=== PATIENT | male | born 1950 | race Caucasian/White ===

== ENCOUNTER 2020-06-06 07:20 | Outpatient (CLI) | payer MEDICARE, OTHER, SELFPAY ==
[2020-06-06 08:06] LABS: Basophils Percent Auto 0.7 % (0.2-1.2); Eosinophils Absolute Auto 0.1 K/mm3 (0-0.3); Eosinophils Percent Auto 2.1 % (0-4.4); Hematocrit 50.5 % (42.0-52.0); Hemoglobin 16.9 g/dL (14.0-18.0); Immature Granulocyte Absolute 0.03 K/mm3 (0.00-0.031); Immature Granulocyte Percent A 0.5 % (0-0.5); Lymphocytes Absolute Auto 2.11 K/mm3 (0.9-3.2); Lymphocytes Percent Auto 36.8 % (18.3-44.2); Mean Corpuscular HGB Conc 33.5 g/dl (32-36); Mean Corpuscular Hemoglobin 34.1 pg (26-34); Mean Corpuscular Volume 101.8 fl (80-100); Mean Platelet Volume 9.3 fl (7.4-10.4); Monocytes Absolute Auto 0.6 K/mm3 (0.1-0.6); Monocytes Percent Auto 10.5 % (2.6-8.5); Neutrophils Absolute Auto 2.8 K/mm3 (1.3-6.7); Neutrophils Percent Auto 49.4 % (45.5-73.1); Platelet Count Result 220 k/mm3 (150-375); Red Blood Count 4.96 M/mm3 (4.6-6.20); Red Cell Distribution Width 12.8 % (11.5-14.5); White Blood Count 5.7 K/mm3 (4.5-10.0)
[2020-06-06 08:17] LABS: Alanine Aminotransferase 27 U/L (4-50); Albumin Level 3.9 g/dL (3.5-5.1); Alkaline Phosphatase 43 U/L (38-126); Anion Gap 4 mmol/L (8-16); Aspartate Amino Transferase 33 U/L (17-59); Bilirubin,Total 0.9 mg/dL (0.2-1.3); Blood Urea Nitrogen 21 mg/dL (9-20); Calcium 9.4 mg/dL (8.4-10.2); Carbon Dioxide 33 mmol/L (22-30); Chloride 102 mmol/L (98-107); Cholesterol 141 mg/dL (0-200); Estimated Glomerular Filt Rate > 60; Glucose 114 mg/dL (75-110); HDL Direct 47 mg/dL; Potassium 3.8 mmol/L (3.4-5.0); Sodium 139 mmol/L (137-145); Triglycerides 68 mg/dL (<150)
[2020-06-06 08:28] LABS: LDL Cholesterol Direct 78 mg/dL
[2020-06-06 08:48] LABS: Prostate Specific Antigen 0.8 ng/mL (< OR = 4.0)
[2020-06-06 08:56] LABS: Free T4 Free Thyroxine 1.05 ng/mL (0.78-2.19)
== END 2020-06-06 07:21 | disposition home or self-care (01) ==
PROVIDERS: PCP Family Medicine; Referring Provider Internal Medicine Cardiovascular Disease; Visit Provider Family Medicine
DX: E78.5 Hyperlipidemia, unspecified (principal); I10 Essential (primary) hypertension; I25.10 Atherosclerotic heart disease of native coronary artery without angina pectoris; I25.9 Chronic ischemic heart disease, unspecified; I42.0 Dilated cardiomyopathy; Z12.5 Encounter for screening for malignant neoplasm of prostate
CPT/HCPCS: 36415; 80053; 80061; 84153; 84439; 84443; 85025; G0103

== ENCOUNTER 2021-05-25 07:35 | Outpatient (CLI) | payer MEDICARE, OTHER, SELFPAY ==
--- NOTE | 2021-05-25 07:53 | ECHO_ITS ---
Patient Info Name: Jabari Moralez Age: 70 years : 1950 Gender: Male Ht: 74 in Wt: 235 lbs BSA: 2.38 m2 HR: 52 bpm BP: 145 / 86 mmHg Technical Quality: Good Exam Date: 05/25/2021 8:15 AM Exam Location: [facility] Patient Status: Outpatient Admit Date: 05/25/2021 Staff Ordering Physician: Marko Humphrey DO Sdc Teacher: Cecille Cardozo RDCS Attending Provider: Marko Humphrey DO Referring Physician: Kam SEARS; Exam Type: CA echo doppler color flow Study Info Indications I25.9 - Chronic ischemic heart disease, unspecified Complete two-dimensional, color flow and Doppler transthoracic echocardiogram is performed. Summary 1. Complete two-dimensional, color flow and Doppler transthoracic echocardiogram is performed. 2. Left ventricular chamber dimension is mildly enlarged. 3. Entire posterior wall is thin and akinetic. Lateral wall is hypokinetic. 4. Left ventricular systolic function is moderately reduced, estimated at 40-45%. 5. The left ventricular diastolic function is grade I diastolic dysfunction. 6. E/e' 20 is elevated. 7. Left atrial chamber dimension is mildly enlarged. 8. There is trace mitral valve regurgitation. 9. Mild pulmonary hypertension, estimated pulmonary arterial systolic pressure is 40 mmHg. 10. The aortic root size at the sinus of Valsalva is mildly dilated at 4.4 cm.. Left Ventricle E/e' 20 is elevated. Entire posterior wall is thin and akinetic. Lateral wall is hypokinetic. Left ventricular chamber dimension is mildly enlarged. Left ventricular systolic function is moderately reduced, estimated at 40-45%. The left ventricular diastolic function is grade I diastolic dysfunction. Right Ventricle Right ventricular systolic function is normal and with normal TAPSE 1.9 cm. Right ventricular chamber dimension is normal. Left Atria Left atrial chamber dimension is mildly enlarged. Right Atria Right atrial chamber dimension is normal. Aortic Valve The aortic valve is trileaflet. There is no aortic valve stenosis. There is no aortic valve regurgitation. Pulmonic Valve There is no pulmonic regurgitation. Mitral Valve There is no mitral valve stenosis. There is trace mitral valve regurgitation. Tricuspid Valve There is no tricuspid valve regurgitation. Mild pulmonary hypertension, estimated pulmonary arterial systolic pressure is 40 mmHg. Pericardium/Pleural There is no pericardial effusion. Inferior Vena Cava Normal inferior vena cava with >50% collapse upon inspiration consistent with normal right atrial pressure, 5 mmHg. Aorta The aortic root size at the sinus of Valsalva is mildly dilated at 4.4 cm.. Left Ventricular Outflow Tract Name Value Normal LVOT 2D LVOT Diameter 2.5 cm LVOT Doppler LVOT Peak Gradient 2 mmHg LVOT Mean Gradient 1 mmHg LVOT VTI 19 cm LVOT VTI/AV VTI Ratio 0.7 LVOT Stroke Volume 94 ml LVOT CO 4.1 l/min LVOT CI
== END 2021-05-25 07:36 | disposition home or self-care (01) ==
PROVIDERS: PCP Family Medicine; Visit Provider Internal Medicine Cardiovascular Disease
DX: I25.9 Chronic ischemic heart disease, unspecified (principal); I27.20 Pulmonary hypertension, unspecified
CPT/HCPCS: 93306

== ENCOUNTER 2021-05-30 14:45 | Outpatient (CLI) | payer MEDICARE, OTHER, SELFPAY ==
[2021-05-30 15:25] LABS: Basophils Percent Auto 0.4 % (0.2-1.2); Eosinophils Absolute Auto 0.1 K/mm3 (0-0.3); Eosinophils Percent Auto 1.4 % (0-4.4); Hematocrit 54.4 % (42.0-52.0); Hemoglobin 18.3 g/dL (14.0-18.0); Immature Granulocyte Absolute 0.03 K/mm3 (0.00-0.031); Immature Granulocyte Percent A 0.4 % (0-0.5); Lymphocytes Absolute Auto 2.64 K/mm3 (0.9-3.2); Lymphocytes Percent Auto 33.4 % (18.3-44.2); Mean Corpuscular HGB Conc 33.6 g/dl (32-36); Mean Corpuscular Hemoglobin 34.5 pg (26-34); Mean Corpuscular Volume 102.6 fl (80-100); Mean Platelet Volume 9.2 fl (7.4-10.4); Monocytes Percent Auto 13.2 % (2.6-8.5); Neutrophils Absolute Auto 4.1 K/mm3 (1.3-6.7); Neutrophils Percent Auto 51.2 % (45.5-73.1); Platelet Count Result 214 k/mm3 (150-375); Red Cell Distribution Width 13.1 % (11.5-14.5); White Blood Count 7.9 K/mm3 (4.5-10.0)
[2021-05-30 15:38] LABS: Alanine Aminotransferase 32 U/L (4-50); Albumin Level 4.4 g/dL (3.5-5.1); Alkaline Phosphatase 46 U/L (38-126); Anion Gap 8 mmol/L (8-16); Aspartate Amino Transferase 34 U/L (17-59); Bilirubin,Total 1.2 mg/dL (0.2-1.3); Blood Urea Nitrogen 25 mg/dL (9-20); Calcium 10.2 mg/dL (8.4-10.2); Carbon Dioxide 32 mmol/L (22-30); Chloride 100 mmol/L (98-107); Cholesterol 154 mg/dL (0-200); Estimated Glomerular Filt Rate > 60; Glucose 67 mg/dL (65-110); HDL Direct 53 mg/dL; Potassium 3.9 mmol/L (3.4-5.0); Sodium 140 mmol/L (137-145); Triglycerides 80 mg/dL (<150)
[2021-05-30 15:49] LABS: LDL Cholesterol Direct 71 mg/dL
[2021-05-30 16:08] LABS: Prostate Specific Antigen 1.4 ng/mL (< OR = 4.0)
[2021-05-30 17:02] LABS: Free T4 Free Thyroxine 1.15 ng/mL (0.78-2.19)
== END 2021-05-30 14:46 | disposition home or self-care (01) ==
LOC: ANHLAB 14:49
PROVIDERS: PCP Family Medicine; Visit Provider Family Medicine
DX: E78.5 Hyperlipidemia, unspecified (principal); I10 Essential (primary) hypertension; Z79.899 Other long term (current) drug therapy; I25.10 Atherosclerotic heart disease of native coronary artery without angina pectoris; Z12.5 Encounter for screening for malignant neoplasm of prostate
CPT/HCPCS: 36415; 80053; 80061; 84153; 84439; 84443; 85025; G0103

== ENCOUNTER 2021-12-08 08:30 | Outpatient (CLI) | payer MEDICARE, OTHER, SELFPAY ==
[2021-12-08 09:03] LABS: Basophils Percent Auto 0.3 % (0.2-1.2); Eosinophils Absolute Auto 0.1 K/mm3 (0-0.3); Eosinophils Percent Auto 0.9 % (0-4.4); Hematocrit 50.2 % (42.0-52.0); Immature Granulocyte Absolute 0.01 K/mm3 (0.00-0.031); Immature Granulocyte Percent A 0.1 % (0-0.5); Lymphocytes Absolute Auto 1.72 K/mm3 (0.9-3.2); Lymphocytes Percent Auto 25.1 % (18.3-44.2); Mean Corpuscular HGB Conc 33.9 g/dl (32-36); Mean Corpuscular Hemoglobin 34.3 pg (26-34); Mean Corpuscular Volume 101.4 fl (80-100); Mean Platelet Volume 9.1 fl (7.4-10.4); Monocytes Absolute Auto 0.6 K/mm3 (0.1-0.6); Monocytes Percent Auto 9.4 % (2.6-8.5); Neutrophils Absolute Auto 4.4 K/mm3 (1.3-6.7); Neutrophils Percent Auto 64.2 % (45.5-73.1); Platelet Count Result 196 k/mm3 (150-375); Red Blood Count 4.95 M/mm3 (4.6-6.20); Red Cell Distribution Width 12.5 % (11.5-14.5); White Blood Count 6.8 K/mm3 (4.5-10.0)
[2021-12-08 09:11] LABS: Anion Gap 4 mmol/L (8-16); Blood Urea Nitrogen 20 mg/dL (9-20); Calcium 8.9 mg/dL (8.4-10.2); Carbon Dioxide 34 mmol/L (22-30); Chloride 99 mmol/L (98-107); Estimated Glomerular Filt Rate > 60; Glucose 134 mg/dL (65-110); Potassium 4.1 mmol/L (3.4-5.0); Sodium 137 mmol/L (137-145)
== END 2021-12-08 08:31 | disposition home or self-care (01) ==
LOC: ANHLAB 08:32
PROVIDERS: PCP Family Medicine; Visit Provider Family Medicine
DX: D75.1 Secondary polycythemia (principal); I25.10 Atherosclerotic heart disease of native coronary artery without angina pectoris; E78.5 Hyperlipidemia, unspecified; I10 Essential (primary) hypertension
CPT/HCPCS: 36415; 80048; 85025

== ENCOUNTER 2022-01-04 08:41 | Outpatient (CLI) | payer MEDICARE, OTHER, SELFPAY ==
[2022-01-04 09:34] LABS: Hemoglobin A1C 5.9 % (<5.7)
== END 2022-01-04 08:42 | disposition home or self-care (01) ==
LOC: ANHLAB 08:43
PROVIDERS: PCP Family Medicine; Visit Provider Family Medicine
DX: E11.9 Type 2 diabetes mellitus without complications (principal)
CPT/HCPCS: 36415; 83036

== ENCOUNTER 2022-06-10 07:11 | Outpatient (CLI) | payer MEDICARE, OTHER, SELFPAY ==
[2022-06-10 08:08] LABS: Cholesterol 143 mg/dL (0-200); HDL Direct 43 mg/dL; Triglycerides 120 mg/dL (<150)
[2022-06-10 08:21] LABS: LDL Cholesterol Direct 71 mg/dL
== END 2022-06-10 07:12 | disposition home or self-care (01) ==
PROVIDERS: PCP Family Medicine; Visit Provider Internal Medicine Cardiovascular Disease
DX: E78.5 Hyperlipidemia, unspecified (principal)
CPT/HCPCS: 36415; 80061

== ENCOUNTER 2023-02-05 07:23 | Outpatient (CLI) | payer MEDICARE, OTHER, SELFPAY ==
[2023-02-05 07:52] LABS: Basophils Percent Auto 0.3 % (0.2-1.2); Eosinophils Absolute Auto 0.1 K/mm3 (0-0.3); Eosinophils Percent Auto 1.5 % (0-4.4); Hematocrit 52.1 % (42.0-52.0); Hemoglobin 17.5 g/dL (14.0-18.0); Immature Granulocyte Absolute 0.01 K/mm3 (0.00-0.031); Immature Granulocyte Percent A 0.2 % (0-0.5); Lymphocytes Absolute Auto 1.78 K/mm3 (0.9-3.2); Lymphocytes Percent Auto 28.7 % (18.3-44.2); Mean Corpuscular HGB Conc 33.6 g/dl (32-36); Mean Corpuscular Hemoglobin 34.4 pg (26-34); Mean Corpuscular Volume 102.4 fl (80-100); Mean Platelet Volume 8.9 fl (7.4-10.4); Monocytes Absolute Auto 0.6 K/mm3 (0.1-0.6); Neutrophils Absolute Auto 3.7 K/mm3 (1.3-6.7); Neutrophils Percent Auto 59.3 % (45.5-73.1); Platelet Count Result 223 k/mm3 (150-375); Red Blood Count 5.09 M/mm3 (4.6-6.20); Red Cell Distribution Width 13.2 % (11.5-14.5); White Blood Count 6.2 K/mm3 (4.5-10.0)
[2023-02-05 08:31] LABS: Alanine Aminotransferase 36 U/L (6-50); Albumin Level 4.2 g/dL (3.5-5.1); Alkaline Phosphatase 51 U/L (38-126); Anion Gap 3 mmol/L (8-16); Aspartate Amino Transferase 39 U/L (17-59); Bilirubin,Total 1.1 mg/dL (0.2-1.3); Blood Urea Nitrogen 16 mg/dL (9-20); Calcium 9.3 mg/dL (8.4-10.2); Carbon Dioxide 37 mmol/L (22-30); Chloride 99 mmol/L (98-107); Cholesterol 142 mg/dL (0-200); Estimated Glomerular Filt Rate > 60; Glucose 106 mg/dL (65-110); HDL Direct 49 mg/dL; Sodium 139 mmol/L (137-145); Triglycerides 89 mg/dL (<150)
[2023-02-05 08:42] LABS: LDL Cholesterol Direct 75 mg/dL
[2023-02-05 09:12] LABS: Prostate Specific Antigen 2.8 ng/mL (< OR = 4.0)
== END 2023-02-05 07:24 | disposition home or self-care (01) ==
PROVIDERS: PCP Family Medicine; Visit Provider Family Medicine
DX: D75.1 Secondary polycythemia (principal); I10 Essential (primary) hypertension; Z12.5 Encounter for screening for malignant neoplasm of prostate; R73.01 Impaired fasting glucose; E78.5 Hyperlipidemia, unspecified
CPT/HCPCS: 36415; 80053; 80061; 83036; 84153; 85025; G0103

== ENCOUNTER 2023-03-07 14:53 | Outpatient (CLI) | payer MEDICARE, OTHER, SELFPAY ==
--- NOTE | 2023-03-07 14:59 | ECHO_ITS ---
Patient Info Name: Jabari Moralez Age: 72 years : 1950 Gender: Male Ht: 75 in Wt: 225 lbs BSA: 2.34 m2 HR: 62 bpm BP: 139 / 79 mmHg Heart Rhythm: Bradycardia Technical Quality: Fair Exam Date: 03/07/2023 3:07 PM Exam Location: [facility] Patient Status: Outpatient Admit Date: 03/07/2023 Staff Ordering Physician: Marko Humphrey DO Airline Counter Agent: Linda Chahal RDCS Attending Provider: Marko Humphrey DO Referring Physician: Kam SEARS; Exam Type: CA echo doppler color flow Study Info Indications I25.9 - Chronic ischemic heart disease, unspecified Complete two-dimensional, color flow and Doppler transthoracic echocardiogram is performed. Summary 1. Complete two-dimensional, color flow and Doppler transthoracic echocardiogram is performed. 2. Left ventricular chamber dimension is mildly enlarged. 3. There is mild asymmetric septal increased left ventricular wall thickness. 4. Basal to apical posterior wall is akinetic. 5. Left ventricular systolic function is moderately segmentally reduced, estimated at 40-45%. 6. The left ventricular diastolic function is grade I diastolic dysfunction. 7. E/e' 14 is mildly elevated. 8. Left atrial chamber dimension is mildly enlarged. 9. Normal inferior vena cava with <50% collapse upon inspiration consistent with elevated right atrial pressure, 10 mmHg. Left Ventricle E/e' 14 is mildly elevated. Basal to apical posterior wall is akinetic. Left ventricular systolic function is moderately segmentally reduced, estimated at 40-45%. Left ventricular chamber dimension is mildly enlarged. There is mild asymmetric septal increased left ventricular wall thickness. The left ventricular diastolic function is grade I diastolic dysfunction. Right Ventricle Right ventricular systolic function is normal and with normal TAPSE 2.8 cm. Right ventricular chamber dimension is normal. Left Atria Left atrial chamber dimension is mildly enlarged. Right Atria Right atrial chamber dimension is normal. Aortic Valve The aortic valve is trileaflet. There is no aortic valve stenosis. There is no aortic valve regurgitation. Pulmonic Valve There is no pulmonic regurgitation. Mitral Valve There is no mitral valve stenosis. There is no mitral valve regurgitation. Tricuspid Valve There is no tricuspid valve regurgitation. Pericardium/Pleural There is no pericardial effusion. Inferior Vena Cava Normal inferior vena cava with <50% collapse upon inspiration consistent with elevated right atrial pressure, 10 mmHg. Aorta The aortic root size at the sinus of Valsalva is normal. Tricuspid Valve Name Value Normal Estimated PAP/RSVP RA Pressure 10 mmHg <=5 Report Signatures
== END 2023-03-07 14:54 | disposition home or self-care (01) ==
LOC: ANHCARD 14:54
PROVIDERS: PCP Family Medicine; Visit Provider Internal Medicine Cardiovascular Disease
DX: I25.9 Chronic ischemic heart disease, unspecified (principal)
CPT/HCPCS: 93306

== ENCOUNTER 2023-03-17 00:32 | Day surgery (SDC) | payer MEDICARE, OTHER, SELFPAY ==
[2023-02-07 14:40] VITALS: BMI 29.5
[2023-03-10 10:33] VITALS: BMI 29.5
[2023-03-17 06:42] VITALS: BP 132/80; PULSE 50; RESP 18; TEMP 36; O2SAT 99; BMI 28.3
[2023-03-17] MEDS: LACTATED RINGERS 1,000 ML 150 ML IV CONT (06:59)
--- NOTE | 2023-03-17 07:43 | PM.HPGS ---
History of Present Illness History of Present Illness Consent: Risks, benefits, and alternatives have been discussed and questions answered. Patient agrees to proceed with procedure. Chief complaint: hx of colon polyps Narrative: Jabari Moralez is a 72 year old male Presents for colonoscopy. Patient has a prior history of adenomatous colon polyps these were removed at the time of colonoscopy in 2017. Patient reports his current bowel habits are normal. Her family history is noncontributory. Patient presents today for follow-up colonoscopy. Review of Systems Review of Systems: Review of systems noncontributory. 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 Chronic fatigue, unspecified Chronic ischemic heart disease Dilated cardiomyopathy Dyslipidemia Essential hypertension Unspecified hearing loss, bilateral Surgical History Surgical History History of arthroscopy of right knee History of hernia repair History of tooth extraction Family History Family History Mother Hypertension Father Family history of Alzheimer's disease, Onset Age: 83 Family history of heart disease in male family member before age 55 Social History Social History Smoking packs per day: 1 Smoking cigarettes per day: 20.0 Years smoked: 55 Smoking pack-years: 55.00 Smoking status: Current every day smoker Tobacco type: cigarettes Alcohol intake: current Substance use: never Substance use type: does not use Living arrangements: with family Spiritual care concerns: No Meds Home Medications and Allergies Home Medications Medication Instructions Recorded Confirmed Type lisinopril 20 mg tablet See Rx Instructions .Route 10/06/22 03/17/23 Rx .COMPLEX #180 tabs indapamide 1.25 mg tablet See Rx Instructions .Route 11/21/22 03/17/23 Rx .COMPLEX #90 tabs metoprolol tartrate 25 mg tablet See Rx Instructions .Route 12/24/22 03/17/23 Rx .COMPLEX #60 tabs lovastatin 10 mg tablet See Rx Instructions .Route 01/14/23 03/17/23 Rx .COMPLEX #90 tabs amiodarone 200 mg tablet 200 mg PO DAILY #90 tabs 01/22/23 03/17/23 Rx apixaban 5 mg tablet (Eliquis) See Rx Instructions .Route 02/05/23 03/17/23 Rx .COMPLEX #60 tabs sildenafil (pulm.hypertension) 20 20 mg PO DAILY PRN Erectile 02/07/23 03/17/23 History mg tablet Dysfunction Allergies Allergy/AdvReac Type Severity Reaction Status Date / Time No Known Allergies Allergy Unknown Verified 03/17/23 06:46 Vital Signs Vital Signs - 24 hr 03/17/23 06:42 Temperature 96.8 F L Pulse Rate 50 L Respiratory Rate 18 Blood Pressure 132/80 Pulse Oximetry 99 Oxygen Delivery Room Air Exam Narrative: Physical exam reveals patient to be alert. Vital signs stable. HEENT exam is unremarkable. Patient is anicteric. Lungs are clear to auscultation and percussion. Heart is without murmur or extra sounds. Abdomen bowel sounds are present soft nontender with no organomegaly. Digital external rectal exam is normal. Assessment and Plan Assessment and plan (1) History of colon polyps: Code(s): Z86.010 - Personal history of colonic polyps Status: Acute Assessment and Plan: Patient has a history of adenomatous colon polyp removed from the colon 2016. Plan for surveillance colonoscopy at this time. Consider this at 5 year intervals.
--- NOTE | 2023-03-17 08:06 | WPDANESEPPF ---
Anes - Initial Pre Proc Eval Procedure: Operation Date: 03/17/23 08:00 Proposed Procedures p Colonoscopy - Brown Matthews MD Date/Time: 03/17/23 08:06 Surgeon: Brown Matthews MD Pre Op Diagnosis: hx of colon polyps Patient Data Age: 72 Gender: M Height: 1.88 m Weight: 100.3 kg Last Vital Signs Temp 96.8 F L 03/17/23 06:42 Pulse 50 L 03/17/23 06:42 Resp 18 03/17/23 06:42 BP 132/80 03/17/23 06:42 Pulse Ox 99 03/17/23 06:42 O2 Del Method Room Air 03/17/23 06:42 Allergies Allergy/AdvReac Type Severity Reaction Status Date / Time No Known Allergies Allergy Unknown Verified 03/17/23 06:46 Home Medications Medication Instructions Recorded Confirmed Type lisinopril 20 mg tablet See Rx Instructions .Route 10/06/22 03/17/23 Rx .COMPLEX #180 tabs indapamide 1.25 mg tablet See Rx Instructions .Route 11/21/22 03/17/23 Rx .COMPLEX #90 tabs metoprolol tartrate 25 mg tablet See Rx Instructions .Route 12/24/22 03/17/23 Rx .COMPLEX #60 tabs lovastatin 10 mg tablet See Rx Instructions .Route 01/14/23 03/17/23 Rx .COMPLEX #90 tabs amiodarone 200 mg tablet 200 mg PO DAILY #90 tabs 01/22/23 03/17/23 Rx apixaban 5 mg tablet (Eliquis) See Rx Instructions .Route 02/05/23 03/17/23 Rx .COMPLEX #60 tabs sildenafil (pulm.hypertension) 20 20 mg PO DAILY PRN Erectile 02/07/23 03/17/23 History mg tablet Dysfunction Patient hx anesthesia problems: none Family hx anesthesia problems: none Results Review: All pre-operative results and documents have been reviewed as part of the pre-operative evaluation. 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 Chronic fatigue, unspecified Chronic ischemic heart disease Dilated cardiomyopathy Dyslipidemia Essential hypertension Unspecified hearing loss, bilateral Surgical History Surgical History History of arthroscopy of right knee History of hernia repair History of tooth extraction Family History Family History Mother Hypertension Father Family history of Alzheimer's disease, Onset Age: 83 Family history of heart disease in male family member before age 55 Social History Social History Smoking packs per day: 1 Smoking cigarettes per day: 20.0 Years smoked: 55 Smoking pack-years: 55.00 Smoking status: Current every day smoker Tobacco type: cigarettes Alcohol intake: current Substance use: never Substance use type: does not use Living arrangements: with family Spiritual care concerns: No Anes - Eval Final PreProcedure Day of Procedure 03/17/23 08:06 Patient weight: normal Heart: regular rate and rhythm Lungs: clear to auscultation Airway: Mallampati scale class II Neurological: alert and oriented Last oral intake: >/= 8 hours ASA classification: III Emergent: no Anesthetic plan: proceed Anesthesia type and monitoring: general GIVS and standard monitoring Results Review: All pre-operative results and documents have been reviewed as part of the pre-operative evaluation. Informed Consent: The patient's anesthetic plan and its attendant risks and benefits were discussed with the patient/family/POA. Questions were solicited and answers provided to the satisfaction of the patient/family/POA.
[2023-03-17 08:29] VITALS: BP 90/47; PULSE 47; RESP 27; O2SAT 96
[2023-03-17 08:39] VITALS: BP 98/56; PULSE 52; RESP 18; O2SAT 98
[2023-03-17 08:49] VITALS: BP 120/72; PULSE 52; RESP 22; O2SAT 97
== END 2023-03-17 08:55 | disposition home or self-care (01) ==
PROVIDERS: PCP Family Medicine; Visit Provider Internal Medicine Gastroenterology
PROC: 0DJD8ZZ Inspection of Lower Intestinal Tract, Via Natural or Artificial Opening Endoscopic (ICD-10-PCS; CPT 45378; principal; 2023-03-17 08:00)
DX: Z12.11 Encounter for screening for malignant neoplasm of colon (principal); D12.5 Benign neoplasm of sigmoid colon; I25.10 Atherosclerotic heart disease of native coronary artery without angina pectoris; I82.722 Chronic embolism and thrombosis of deep veins of left upper extremity; I42.0 Dilated cardiomyopathy; I25.5 Ischemic cardiomyopathy; I10 Essential (primary) hypertension; E78.5 Hyperlipidemia, unspecified; Z79.01 Long term (current) use of anticoagulants; F17.210 Nicotine dependence, cigarettes, uncomplicated
CPT/HCPCS: 45385; 88305; J2704; J7120

== ENCOUNTER 2023-09-16 11:10 | Outpatient (CLI) | payer MEDICARE, OTHER, SELFPAY ==
--- NOTE | ~2023-09-16 | CT_ITS ---
CT Scan of the Chest without Contrast: Clinical Indication: Lung cancer screening, personal history of nicotine dependence Technique: Contiguous sections were acquired throughout the chest without intravenous contrast. Dose reduction technique was used on this scan by utilizing automated exposure control and iterative recon struction technique. The dose-length product (DLP) was 272.71 mGy-cm. COMPARISON: 02/03/2017rrrrrrrr Findings: There is no evidence of any significant mediastinal, hilar or axillary lymphadenopathy. The mediastin al soft tissues appear normal. There is no evidence of pleural or pericardial effusion. There is a 3.4 cm pulmonary nodule at the lingula, with probable mild spiculation. There is probable scarring or atelectatic change at the right lung base/right middle lobe. Calcified left apical granul lisa present. Images through the upper abdomen reveal multiple small calcified gallstones. Bilateral low-density ad renal nodules are most consistent with adenomas. 6 mm nonobstructing right renal stone is partially i angie. Impression: Lung RADS 4B: Highly suspicious. Tissue sampling of the 3.4 cm lingular pulmonary nodule is recommend ed to establish a histologic diagnosis. Low-density adrenal nodules are most consistent with adenomas. Cholelithiasis and right nephrolithiasis. Reviewed, dictated and finalized at location . EKEEPER CAREGIVER Impression: Lung RADS 4B: Highly suspicious. Tissue sampling of the 3.4 cm lingular pulmona ry nodule is recommended to establish a histologic diagnosis. Low-density adrenal nodules are most consistent with adenomas. Cholelithiasis and right nephrolithiasis.
== END 2023-09-16 11:11 | disposition home or self-care (01) ==
LOC: ANHIMG 11:11
PROVIDERS: PCP Family Medicine; Visit Provider Family Medicine
DX: Z12.2 Encounter for screening for malignant neoplasm of respiratory organs (principal); Z87.891 Personal history of nicotine dependence; N20.0 Calculus of kidney; K80.20 Calculus of gallbladder without cholecystitis without obstruction; R91.8 Other nonspecific abnormal finding of lung field
CPT/HCPCS: 71271

== ENCOUNTER 2023-09-23 08:52 | Outpatient (CLI) | payer MEDICARE, OTHER, SELFPAY ==
--- NOTE | 2023-09-19 12:03 | PC.NURSE ---
Addendum entered by Brissa Luevano RN 09/19/23 12:33: RAD dept confirmed only 2 days need to hold apixaban this RN called patient to inform understanding stated. Original Note: Pre Radiology instructions Report to the outpatient [facility] on date 9am at time 11am for procedure Time: ____ YOU MAY BE MONITORED AT HOSPITAL FOR UP TO 4 HOURS AFTER YOUR PROCEDURE. A visitor will be allowed to accompany the patient into the hospital. You and your visitor will be asked to self-screen and do not enter if you have any COVID symptoms. A mask is OPTIONAL within the hospital. Patients are to have no food or drink 6 hours prior to procedure time Driving will be restricted after the procedure, you must have a person to drive you home. Labs will be drawn in preop area and once reviewed, you will be taken to radiology area for procedure. When the procedure is completed, you will be taken to outpatient where you will be monitored for several hours. You may have one visitor in this area. Other than holding anti-coagulants, patient may take other medication(s) as scheduled. Prior to your appointment date patients are instructed to hold anti-coagulants after discussing with ordering provider to stop. If unable to discontinue anti-coagulants please notify radiologist. ? No aspirin or warfarin (Coumadin) for 7 days prior to the procedure. ? No clopidogrel (Plavix), ticagrelor (Brilinta), prasugrel (Effient) or dabigatran (Pradaxa) for 5 days prior to the procedure. ? No rivaroxaban (Xarelto), apixaban (Eliquis), dipyridamole (Aggrenox or Persantine) or cilostazol (Pletal) for 2 days prior to the procedure. Medications to discontinue per physician: __apixaban __ Date to take last dose: 09/19/23 states has taken today because was told to only hold 2 days I advised him to hold as of today and called RAD dept to state if a problem contact patient to reschedule. Please leave all valuables, including medications, at home the day of procedure. The hospital will not accept responsibility for valuables. Wear comfortable, loose fitting clothing.? Follow any additional instructions given to you from ordering provider. Telephone instructions given to patient and asked if any additional questions and then verbalized understanding. Patient advised to call scheduling provider office or registration scheduling [phone] if any additional questions.
[2023-09-19 12:15] VITALS: BMI 29.5
[2023-09-23] VITALS (10 sets, daily range): BP systolic 122–148; BP diastolic 64–84; PULSE 58–80; RESP 14–18; TEMP 36.7; O2SAT 93–100
--- NOTE | ~2023-09-23 | XR_ITS ---
EXAMINATION: XR chest 1V portable DATE: 09/23/2023 14:26 INDICATION: Left lung mass status post percutaneous biopsy. TECHNIQUE: A single frontal view of the chest was obtained. COMPARISON: Chest single view at 12:21 PM FINDINGS: There is elevation of right hemidiaphragm. There is mild atelectasis at right lung base. Th ere is a mass in left lung upper lobe. No pleural effusion or pneumothorax. The heart size is normal. IMPRESSION: 1. Mass in left lung upper lobe suspicious for primary bronchogenic carcinoma. Reviewed, dictated and finalized at location A. TENANT BALLISTICS
--- NOTE | ~2023-09-23 | XR_ITS ---
EXAMINATION: XR chest 1V portable DATE: 09/23/2023 12:22 INDICATION: Left lung mass status post previous biopsy. TECHNIQUE: A single frontal view of the chest was obtained. COMPARISON: Chest single view at 11:24 AM FINDINGS: There is elevation of right hemidiaphragm. There is mild atelectasis at right lung base. Th ere is a mass in left lung upper lobe. No pleural effusion or pneumothorax. The heart size is normal. IMPRESSION: 1. Mass in left lung upper lobe suspicious for primary bronchogenic carcinoma. Reviewed, dictated and finalized at location A. L CLERK
--- NOTE | ~2023-09-23 | XR_ITS ---
EXAMINATION: XR chest 1V DATE: 09/23/2023 11:25 INDICATION: Left lung nodule status post percutaneous biopsy. TECHNIQUE: A single frontal view of the chest was obtained. COMPARISON: Chest CT 09/16/2023 FINDINGS: There is elevation of right hemidiaphragm. There is mild atelectasis at right lung base. Th ere is a mass in left lung upper lobe. No pleural effusion or pneumothorax. The heart size is normal. IMPRESSION: 1. Mass in left lung upper lobe suspicious for primary bronchogenic carcinoma. Reviewed, dictated and finalized at location A. H SANDER
--- NOTE | ~2023-09-23 | CT_ITS ---
EXAMINATION: CT biopsy lung w/imaging DATE: 09/23/2023 11:22 INDICATION: Left lung mass. TECHNIQUE: The procedure including the risks, benefits, and alternatives and possibility of chest tub e placement were discussed with the patient. Risks discussed included infection, hemorrhage, approxim ately 1/3 risk of pneumothorax, approximately 1/10 risk of pneumothorax severe enough to warrant ches t tube placement, and rarely . The patient understood the risks and agreed to proceed. The patie nt was placed supine. The skin overlying the left chest was prepped and draped in sterile fashion. Anesthetic was administered with 1% lidocaine subcutaneously. A 19 gauge outer needle was advanced u nder CT guidance to the lesion of interest. A 20 gauge core biopsy needle was then used to obtain 3 c ore biopsy specimens. The needle was removed and the entry site was cleaned and dressed. The mA was a djusted according to patient size. Iterative reconstruction technique was employed. The dose-length p roduct was 106.35 mGy-cm. There were no immediate complications. FINDINGS: CT images demonstrate the outer needle tip adjacent to a 3.7 x 3.0 cm mass in left lung upp er lobe. IMPRESSION: 1. CT-guided core needle biopsy of a mass in left lung upper lobe. Reviewed, dictated and finalized at location A. AND OIL CHECKER
[2023-09-23 09:37] LABS: Mean Platelet Volume 9.6 fl (7.4-10.4); Platelet Count Result 220 k/mm3 (150-375)
[2023-09-23 09:47] LABS: Prothrombin Time 13.3 Seconds (11.1-14.7)
== END 2023-09-23 14:50 | disposition home or self-care (01) ==
PROVIDERS: PCP Family Medicine; Visit Provider Radiology Diagnostic Radiology
PROC: BB24ZZZ Computerized Tomography (CT Scan) of Bilateral Lungs (ICD-10-PCS; CPT 32408; principal; 2023-09-23 11:00)
DX: R91.1 Solitary pulmonary nodule (principal); C34.92 Malignant neoplasm of unspecified part of left bronchus or lung
CPT/HCPCS: 32408; 36415; 71045; 81210; 81235; 81275; 81276; 85049; 85610; 88271; 88274; 88275; 88305; 88313; 88342; 88360; 88381

== ENCOUNTER 2024-03-22 08:10 | Outpatient (CLI) | payer MEDICARE, OTHER, SELFPAY ==
[2024-03-22 08:56] LABS: Alanine Aminotransferase 26 U/L (6-50); Albumin Level 4.3 g/dL (3.5-5.1); Alkaline Phosphatase 48 U/L (38-126); Anion Gap 4 mmol/L (4-12); Aspartate Amino Transferase 31 U/L (17-59); Bilirubin,Total 1.3 mg/dL (0.2-1.3); Blood Urea Nitrogen 18 mg/dL (9-20); Calcium 9.7 mg/dL (8.4-10.2); Carbon Dioxide 38 mmol/L (22-30); Chloride 98 mmol/L (98-107); Cholesterol 145 mg/dL (0-200); Estimated Glomerular Filt Rate > 60; Glucose 117 mg/dL (65-110); HDL Direct 50 mg/dL; Potassium 4.5 mmol/L (3.4-5.0); Sodium 140 mmol/L (137-145); Triglycerides 99 mg/dL (<150)
[2024-03-22 09:07] LABS: LDL Cholesterol Direct 85 mg/dL
[2024-03-22 09:26] LABS: Prostate Specific Antigen 1.4 ng/mL (< OR = 4.0)
== END 2024-03-22 08:11 | disposition home or self-care (01) ==
LOC: ANHLAB 08:13
PROVIDERS: PCP Family Medicine; Visit Provider Family Medicine
DX: E11.9 Type 2 diabetes mellitus without complications (principal); Z12.5 Encounter for screening for malignant neoplasm of prostate; Z13.228 Encounter for screening for other metabolic disorders; Z13.220 Encounter for screening for lipoid disorders
CPT/HCPCS: 36415; 80053; 80061; 83036; 84153; G0103

== ENCOUNTER 2024-06-29 08:35 | Outpatient (CLI) | payer MEDICARE, OTHER, SELFPAY ==
--- NOTE | ~2024-06-29 | XR_ITS ---
Right Shoulder Technique: AP and scapular Y views were obtained. Clinical History: Pain Findings: No fracture or dislocation is seen. Osseous alignment is anatomic. The glenohumeral and acr omioclavicular joints demonstrate mild degenerative change. Soft tissues are unremarkable. Impression: Mild degenerative change, as above. Reviewed, dictated and finalized at location . Impression: Mild degenerative change, as above.
--- NOTE | ~2024-06-29 | XR_ITS ---
Left Shoulder Technique: AP and scapular Y views were obtained. Clinical History: Pain Findings: No fracture or dislocation is seen. Osseous alignment is anatomic. The glenohumeral and acr omioclavicular joints demonstrate mild degenerative change. Soft tissues are unremarkable. Impression: Mild degenerative changes, as above. Reviewed, dictated and finalized at location . Impression: Mild degenerative changes, as above.
== END 2024-06-29 08:36 | disposition home or self-care (01) ==
LOC: GOSHIMG 08:36
PROVIDERS: PCP Family Medicine; Visit Provider Family Medicine
DX: M19.012 Primary osteoarthritis, left shoulder (principal); M19.011 Primary osteoarthritis, right shoulder
CPT/HCPCS: 73030

== ENCOUNTER 2025-03-03 08:21 | Outpatient (CLI) | payer MEDICARE, OTHER, SELFPAY ==
--- OUTSIDE RECORDS SUMMARY | 2025-03-03 08:30 | XMS_ITS | Referral Summary ---
Author Organization [facility] [address] [place] Address [address] [place] [address] Care Team Providers Care Weatherization Crew Leader Name Role Phone Tulio Herman DO Unavailable Nathanael Navarrete MD PhD Unavailable [phone] Sourav Cade MD Unavailable [phone] Marko Humphrey Kena DO Unavailable [phone] Tyrese Ruiz DO Primary Care Provider + [phone] Encounters Date Type Department Care Team Description 02/21/2025 11:16 AM CDT - 02/21/2025 11:59 PM CDT Hospital Encounter [facility] Medical Office Building [address] [place] [address] Malignant neoplasm of upper lobe of left lung (HCC) Discharge Disposition: Discharge to home or self care 02/21/2025 11:30 AM CDT Office Visit [facility] Medical Office Building 2 Radiation Oncology [address] [place] [address] Kait Martel PA Malignant neoplasm of upper lobe of left lung (HCC) (Primary Dx); Personal history of radiation therapy 01/18/2025 8:45 AM CDT Office Visit [facility] Otolaryngology [address], [address] [place] [address] Eliecer Cade II, MD Nasal valve stenosis (Primary Dx); Nasal cavity mass; Hypertrophy of both inferior nasal turbinates 01/05/2025 Telephone [facility] Medical Office Building 2 Radiation Oncology [address] [place] [address] Era Carbajal 01/03/2025 Telephone [facility] Otolaryngology [address] [place] [phone] Alanis Schreiber Post-op Visit 12/31/2024 11:30 AM CDT Office Visit [facility] Otolaryngology [address] [place] [phone] Eliecer Cade II, MD Nasal valve stenosis (Primary Dx); Hypertrophy of both inferior nasal turbinates; Nasal cavity mass 12/30/2024 Telephone [facility] Otolaryngology [address] [place] [phone] Vashti Fabian LPN Pre-medication for procedure from Last 3 Months Allergies No known active allergies Medications Eliquis 5 mg tablet TAKE 1/2 (ONE-HALF) TABLET BY MOUTH TWICE DAILY 2 Active indapamide (LOZOL) 1.25 mg tablet Take 1 tablet (1.25 mg total) by mouth daily 2 Active lisinopriL (PRINIVIL,ZESTR IL) 20 mg tablet Take 1 tablet (20 mg total) by mouth 2 (two) times a day 2 Active lovastatin (MEVACOR) 10 mg tablet Take 1 tablet (10 mg total) by mouth nightly 2 Active sildenafiL, pulm.hypertensi on, (REVATIO) 20 mg tablet TAKE 1 TABLET BY MOUTH ONCE DAILY NEEDED FOR ERECTILE DYSFUNCTION 3 Active metoprolol tartrate (LOPRESSOR) 25 mg immediate release tablet Take 1 tablet (25 mg total) by mouth 2 (two) times a day 4 Active azelastine-flut icasone 137-50 mcg/spray spray,non-aeros ol Administer 1 spray into affected nostril(s) 2 (two) times a day as needed Active albuterol HFA (PROVENTIL HFA,VENTOLIN HFA,PROAIR HFA) 90 mcg/actuation inhaler INHALE 1 PUFF BY MOUTH EVERY 4 HOURS NEEDED FOR SHORTNESS OF BREATH AND FOR WHEEZING 4 Active amiodarone (PACERONE) 200 mg tablet TAKE 1/4 (ONE-FOURTH) TABLET BY MOUTH ONCE DAILY 4 Active triamcinolone (KENALOG) 0.025 % ointment APPLY TO RASH AREA(S) ON LOWER LEGS ONCE DAILY FOR FLARES FOR FOUR WEEKS, THEN USE TWICE WEEKLY FOR MAINTENANCE. DO NOT APPLY TO FACE 4 Active diazePAM (VALIUM) 5 mg tabletIndicatio ns:Nasal valve stenosis,Hypert rophy of both inferior nasal turbinates,Michelle ated nasal septum,Nasal cavity mass Take 2 tabs po 45 minutes prior to procedure. Bring 3RD tab to the procedure. PATIENT MUST HAVE FIBERGLASS BONDING MACHINE TENDER 3 tablet 5 Active HYDROcodone-jose taminophen (NORCO) 7.5-325 mg per tabletIndicatio ns:Pain Take 1 tablet by mouth every 6 (six) hours as needed for pain 1 tablet 5 Active Active Problems Patient Care Coordination No te Formatting of this note migh t be different from the original. Referring provider: Dr. Nathanael Navarrete Mr. Jabari Moralez is a 72-year-old with lung cancer. On 09/16/2023 the patient underwent a lung cancer screening chest CT without contrast which noted a mass in the left upper lobe measuring 3.6 x 3.0 cm. There was a small amount of atelectasis versus scarring seen adjacent to the mass. There was a calcified nodule in the left lung apex. There was a ground-glass nodule in the left upper lobe measuring 4 mm. On 09/23/2023 the patient underwent a CT-guided biopsy of the left upper lobe lung mass. Final pathology showed squamous cell carcinoma. On 10/14/2023 the patient underwent a brain MRI which noted no enhancing parenchymal mass to suggest metastatic disease. There was a left frontoparietal tiny nonenhancing signal which is nonspecific and could reflect a subacute to early chronic lacunar infarction. There was chronic lacunar infarction, chronic microvascular ischemic type white-matter changes. On 10/27/2023 the patient underwent a PET scan which noted of the left upper lobe lung mass with a maximum SUV of 14.6. There was a mild focus of uptake within the left hilar region without corresponding CT abnormality. This is favored to be reactive. There was bilateral hypermetabolic parotid gland nodules, left greater than the right. 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 He has a history of a DVT, dilated cardiomyopathy and coronary artery disease. Patient is a current smoker. We are working on getting the patient scheduled for pulmonary function testing prior to his appointment today. Patient presents today for further surgical evaluation. Problem Noted Date Diagnosed Date Chronic pansinusitis 11/09/2024 Nasal cavity mass 11/09/2024 Nasal valve stenosis 11/09/2024 Personal history of radiation therapy 03/03/2024 Malignant neoplasm of upper lobe of left lung Cancer Staging:Clinical stage from 10/31/2023: cT2, cN0, cM0 - Signed by Sourav Cade MD on 10/31/2023 Post-nasal drip 11/27/2021 Deviated nasal septum 11/27/2021 Hypertrophy of both inferior nasal turbinates Social History Tobacco Use Types Packs/Day Years Used Date Smoking Tobacco: Former Cigarettes Smokeless Tobacco: Never Tobacco Cessation:Counseling Given: Not Answered Comments:Quit 3 weeks ago AUDIT-C Answer Date Recorded Q1: How often do you have a drink containing alc ohol? Monthly or less 11/11/2023 Q2: How many drinks containi ng alcohol do you have on a typical day when you are drinking? 1 or 2 11/11/2023 Q3: How often do you have si x or more drinks on one occasion? 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 Gender Identity Not on file Sexual Orientation Not on file Last Filed Vital Signs Vital Sign Reading Time Taken Comments Blood Pressure 119/70 02/21/2025 11:30 AM CDT Pulse 51 02/21/2025 11:30 AM CDT Temperature 36.7 C (98 F) 01/18/2025 10:26 AM CDT Respiratory Rate 18 12/31/2024 1:02 PM CDT Oxygen Saturation 99% 02/21/2025 11:30 AM CDT Inhaled Oxygen Concentration - - Weight 104.3 kg (230 lb) 02/21/2025 11:30 AM CDT Height 188 cm (6' 2) 01/18/2025 10:26 AM CDT Body Mass Index 29.53 01/18/2025 10:26 AM CDT Plan of Treatment Not on file Insurance MEDICARE [facility] MEDICARE [facility] Care Teams Weatherization Crew Leader Relationship Specialty Start Date End Date Tyrese Ruiz DO [address] [facility] [address] [place] [address] PCP - General Internal Medicine 10/19/24 Tulio Herman DO 34[address] [facility] [address] [place], [place] [id number] Family Medicine 09/25/23 Nathanael Navarrete MD PhD 1418 [facility] MEDICAL ONCOLOGY, [facility] [address] [place], [place] [phone] Referring Physician Medical Oncology 09/26/23 Sourav Cade MD 1418 [facility] [address] [place], [place] [phone] Radiation Oncologist Radiation Oncology 10/29/23 Marko Humphrey DO [address] [place] [address] Director Biology Cardiology 11/03/23
--- OUTSIDE RECORDS SUMMARY | 2025-03-03 08:30 | XMS_ITS ---
Author Organization [facility] [address] [place] Address [address] [place] [address] Care Team Providers Care Mohs Surgeon/General Dermatologist Name Role Phone SantosTulio riddle Unavailable Nathanael Navarrete MD PhD Unavailable [phone] Sourav Cade MD Unavailable [phone] Marko Humphrey DO Unavailable [phone] Tyrese Ruiz DO Primary Care Provider [phone] Active Problems Patient Care Coordination No te [...] 11/27/2021 Hypertrophy of both inferior nasal turbinates Current Treatment and Therapy Plans No current plan information found. Past Treatment and Therapy Plans No past plan information found. Radiation Treatments * Course [id number]_202312/01/2023 - 12/11/2023 Treatment Period Energy Fraction Dose Fractions Total Dose Plans Planned BURKE SBRT 12/01/2023 - 12/11/2023 1,100 5 / 5,500 Reference Points Delivered BURKE [id number] 12/01/2023 - 12/11/2023 5,500 Lifetime Dose Tracking * Chemical Lifetime Dose Automatic Entry Manual Entr y Fluoro Time 0.3 minutes 0.3 minutes 0 minutes Air kerma at the reference point (Ka,r) 265.1 mGy 2 65.1 mGy 0 mGy
--- OUTSIDE RECORDS SUMMARY | 2025-03-03 08:30 | XMS_ITS | Clinical Summary ---
Author Organization [facility] [address] [place] Address [address] [place] [address] Care Team Providers Care Channel Executive Name Role Phone Tulio Herman Unavailable Nathanael Navarrete MD PhD Unavailable [phone] Sourav Cade MD Unavailable [phone] Kam Marko Kena DO Unavailable [phone] Tyrese Ruiz DO Primary Care Provider [phone] Allergies No known active allergies Medications Eliquis [...] tab to the procedure. PATIENT MUST HAVE GERIATRIC SOCIAL WORKER 3 tablet 5 Active HYDROcodone-jose taminophen (NORCO) [...] 11/27/2021 Hypertrophy of both inferior nasal turbinates Encounters Date Type Department Care Team Description 02/21/2025 11:30 AM CDT Office Visit [facility] Medical Office Building 2 Radiation Oncology [address] [place] [address] Kait Martel, PA Malignant neoplasm of upper lobe of left lung (HCC) (Primary Dx); Personal history of radiation therapy 02/21/2025 11:16 AM CDT - 02/21/2025 11:59 PM CDT Hospital Encounter [facility] Medical Office Building [address] [place] [address] Malignant neoplasm of upper lobe of left lung (HCC) Discharge Disposition: Discharge to home or self care 01/18/2025 8:45 AM CDT Office Visit [facility] Otolaryngology [address], [address] [place] [address] Eliecer Cade II, MD Nasal valve stenosis (Primary Dx); Nasal cavity mass; Hypertrophy of both inferior nasal turbinates 01/05/2025 Telephone [facility] Medical Office Building 2 Radiation Oncology [address] [place] [address] Era Carbajal 01/03/2025 Telephone [facility] Otolaryngology [address] [place] [phone] Alanis Schreiber Post-op Visit 12/31/2024 11:30 AM CDT Office Visit [facility] Otolaryngology [address] [place] [phone] Eliecer Cade II, MD Nasal valve stenosis (Primary Dx); Hypertrophy of both inferior nasal turbinates; Nasal cavity mass 12/30/2024 Telephone [facility] Otolaryngology [address] [place] [phone] Vashti Fabian LPN Pre-medication for procedure from Last 3 Months Surgical History Surgery Date Site/Laterality Comments HERNIA REPAIR COLONOSCOPY KNEE SURGERY 09/15/1966 - 09/14/1967 REPAIR KNEE LIGAMENT Left VASECTOMY OTHER SURGICAL HISTORY 12/31/2024 Vivaer Procedure Medical History Medical History Date Comments Deep vein thrombosis (HCC) Hypertension Heart attack (HCC) Congestive heart failure (CHF) (HCC) Skin cancer Sleep apnea Hyperlipidemia Sinusitis Family History Medical History Relation Name Comments Bone cancer Sister Ovarian cancer Sister Relation Name Status Comments Sister Social History Tobacco Use Types Packs/Day Years [...] on file 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 Gender Identity Not on file Sexual Orientation Not on file Obstetrics History Last Filed Vital Signs Vital Sign Reading [...] 01/18/2025 10:26 AM CDT Plan of Treatment Health Maintenance Due Date Last Done Comments Colon Cancer Screening-Colonoscopy 1950 Depression Screening 1950 Hepatitis C Screening 1950 DTaP/Tdap/Td Vaccine (1 - Tdap) 1960 Hepatitis B Screening 12/20/1967 Zoster Vaccine (1 of 2) 12/20/1999 Abdominal Aortic Aneurysm (A AA) Screen 2014 Well Visit 65+ 2014 Covid-19 Vaccine (2023-2 5 season) 2024 08/27/2021, 12/15/2020, 12/12/2020, Additional history exists Fall Risk Assessment 11/11/2024 11/11/2023 Pneumococcal vaccine 65+ Completed 05/31/2020, 05/16 Influenza Vaccine Completed 09/02/2024, , 07/08/2022, Additional history exists Insurance MEDICARE [facility] MEDICARE [id number] Care Teams Channel Executive Relationship Specialty Start Date End Date Tyrese Ruiz DO [address] [place] [address] PCP - General Internal Medicine 10/19/24 Tulio Herman DO [address] [place] [address] [address] [place] [address] Family Medicine 09/25/23 Nathanael Navarrete MD PhD 1418 [facility] MEDICAL ONCOLOGY, [facility] [address] [place] [address] Referring Physician Medical Oncology 09/26/23 Sourav Cade MD [facility] [address] [place], [place] [phone] Radiation Oncologist Radiation Oncology 10/29/23 Marko Humphrey DO [address] [facility] [address] [place] [address] Broadcast Field Supervisor Cardiology 11/03/23
[2025-03-03 09:37] LABS: Alanine Aminotransferase 24 U/L (6-50); Albumin Level 4.1 g/dL (3.5-5.1); Alkaline Phosphatase 41 U/L (38-126); Anion Gap 7 mmol/L (4-12); Aspartate Amino Transferase 38 U/L (17-59); Bilirubin,Total 1.4 mg/dL (0.2-1.3); Blood Urea Nitrogen 19 mg/dL (9-20); Calcium 9.5 mg/dL (8.4-10.2); Carbon Dioxide 33 mmol/L (22-30); Chloride 97 mmol/L (98-107); Cholesterol 145 mg/dL (0-200); Estimated Glomerular Filt Rate > 60; Glucose 112 mg/dL (65-110); HDL Direct 47 mg/dL; Potassium 4.3 mmol/L (3.4-5.0); Sodium 137 mmol/L (137-145); Total Protein 7.9 g/dL (6.3-8.2); Triglycerides 82 mg/dL (<150)
[2025-03-03 09:45] LABS: LDL Cholesterol Direct 70 mg/dL
[2025-03-03 11:13] LABS: Hemoglobin A1C 6.2 % (<5.7)
== END 2025-03-03 08:22 | disposition home or self-care (01) ==
LOC: ANHLAB 08:23
PROVIDERS: PCP Internal Medicine; Visit Provider Internal Medicine Cardiovascular Disease
DX: R73.03 Prediabetes (principal); E78.5 Hyperlipidemia, unspecified
CPT/HCPCS: 36415; 80053; 80061; 83036

== ENCOUNTER 2025-03-21 13:34 | Outpatient (CLI) | payer MEDICARE, OTHER, SELFPAY ==
--- OUTSIDE RECORDS SUMMARY | 2025-03-21 13:37 | XMS_ITS ---
Author Organization [facility] [address] [place] Address [address] [place] [address] Care Team Providers Care Truck Packer Name Role Phone SantosTulio riddle Unavailable Nathanael Navarrete MD PhD Unavailable [phone] Sourav Cade MD Unavailable [phone] Marko Humphrey DO Unavailable [phone] Tyrese Ruiz DO Primary Care Provider [phone] Active Problems Patient Care Coordination No te [...]
--- OUTSIDE RECORDS SUMMARY | 2025-03-21 13:37 | XMS_ITS | Clinical Summary ---
Author Organization [facility] [address] [place] [address] Care Team Providers Care Sheet Metal Production Worker Name Role Phone Tulio Herman Unavailable Nathanael Navarrete MD PhD Unavailable [phone] Sourav Cade MD Unavailable [phone] Kam Marko Kena DO Unavailable [phone] Tyrese Ruiz DO Primary Care Provider [phone] Allergies No known active allergies Medications Eliquis [...] tab to the procedure. PATIENT MUST HAVE PERFORMANCE IMPROVEMENT SPECIALIST 3 tablet 5 Active HYDROcodone-jose taminophen (NORCO) 7.5-325 mg per tabletIndicatio ns:Pain Take 1 tablet by mouth every 6 (six) hours as needed for pain 1 tablet 5 Active Active Problems Patient Care Coordination No te Formatting of this note migh t be different from the original. Referring provider: Dr. Nathanael Navarrete Mr. Jabari Moraelz is a 72-year-old with lung cancer. On [...] Encounters Date Type Department Care Team Description 03/03/2025 Telephone [facility] 2 Radiation Oncology [address] [place] [address] Kait Martel PA 02/21/2025 11:30 AM CDT Office Visit [facility] 2 Radiation Oncology [address] [place] [address] Kait Martel, PA Malignant neoplasm of upper lobe of left lung (HCC) (Primary Dx); Personal history of radiation therapy 02/21/2025 11:16 AM CDT - 02/21/2025 11:59 PM CDT Hospital Encounter [facility] [address] [place] [address] Malignant neoplasm of upper lobe of left lung (HCC) Discharge Disposition: Discharge to home or self care 01/18/2025 8:45 AM CDT Office Visit [facility] Otolaryngology [address], [address] [place] [address] Eliecer Cade II, MD Nasal valve stenosis (Primary Dx); Nasal cavity mass; Hypertrophy of both inferior nasal turbinates 01/05/2025 Telephone [facility] 2 Radiation Oncology [address] [place] [address] Kaylyn Carbajala 01/03/2025 Telephone [facility] Otolaryngology [address] [place] [phone] Alanis Schreiber Post-op Visit 12/31/2024 11:30 AM CDT Office Visit [facility] Otolaryngology [address] [place] [phone] Eliecer Cade II, MD Nasal valve stenosis (Primary Dx); Hypertrophy of both inferior nasal turbinates; Nasal cavity mass 12/30/2024 Telephone [facility] Otolaryngology [address] [place] [phone] Vashti Fabian LPN Pre-medication for procedure [...] on file 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 Gender Identity Not on file Sexual Orientation [...] history exists Fall Risk Assessment 11/11/2024 11/11/2023 Influenza Vaccine (#1) 2025 , 08/29/2023, 07/08/2022, Additional history exists Pneumococcal vaccine 65+ Completed 05/31/2020, 05/16 Procedures Procedure Name Priority Date/Time Associated Diagnosis Comments CT CHEST WO CONTRAST Schedule Routine, Read Routine (OP Routine) 02/21/2025 11:25 AM CDT Malignant neoplasm of upper lobe of left lung (HCC) from Last 3 Months Results * CT Chest WO Contrast (02/21/2025 11:25 AM CDT) Anatomical Region Laterality Modality Body N/A Computed Tomogra phy 03/03/2025 11:4 0 AM CDT Narrative 03/03/2025 11:50 AM CDT EXAM DESCRIPTION: CT CHEST WO CONTRAST REASON FOR STUDY: Non-small cell lung cancer (NSCLC), non-metastatic, assess treatment response 3 month lung cancer f/u. No complaints. TECHNIQUE: CT scan of the chest performed without intravenous contrast using helical scanning technique. Reconstructed coronal and sagittal MPR images reviewed. All images stored on PACS. Automated exposure control was used as a dose optimization technique for this examination. COMPARISON: 11/22/2024. FINDINGS: The sensitivity for detection of solid visceral lesions is diminished without the use of intravenous contrast. LUNGS: Small area of nodularity along the trachea is new from the prior study and may be a small area of adherent mucus, tracheal polyp is thought less likely. There is a moderately elevated right hemidiaphragm. There is prominent bibasilar atelectasis. In the right lower lobe there is a new nodular area of opacity curvilinear which is favored to be atelectasis slightly nodular measuring 2.2 x 2.1 cm (image 60). The previous subpleural area of nodular opacity in the right lower lobe has resolved. Area of opacity in the left upper lobe again slightly nodular 1.6 x 1.4 cm (image 52), previously 2.0 x 1.5 cm. PLEURA: No pleural effusion or pneumothorax. MEDIASTINUM/AMANDO: No mediastinal or hilar mass. HEART: Heart size is mildly enlarged. There is no pericardial effusion. There is calcification along the left lateral ventricular wall. CORONARY ARTERY CALCIFICATION: Coronary artery calcifications are seen. VASCULATURE: Thoracic aorta nonaneurysmal. Ascending thoracic aorta 3.7 cm, descending thoracic aorta 2.9 cm. Main pulmonary artery 3.2 cm. AXILLA: No axillary lymphadenopathy. CHEST WALL: No chest wall mass or subcutaneous emphysema. HARDWARE/LINES/TUBES: None. UPPER ABDOMEN: In the included upper abdomen, mild hepatic steatosis. Extensive cholelithiasis, most gallstones are approximately 0.8 cm. There is bilateral low-density adrenal gland thickening normal right adrenal gland 1.5 cm, left adrenal gland 1.7 cm. MUSCULOSKELETAL: Bone windows demonstrate no acute or aggressive osseous abnormality. Osseous bridging between the right first and second ribs likely related to old trauma. OTHER: No other significant abnormality. IMPRESSION: 1. Redemonstration of moderate elevation right hemidiaphragm with bibasilar atelectasis. 2. New nodular area of opacity in the right lower lobe 2.2 x 2.1 cm favored to be atelectasis. Three-month follow-up chest CT recommended. 3. Resolution of the previous pleural base nodular area of opacity in the right lower lobe. 4. Slight decrease in size of the left upper lobe opacity 1.6 x 1.4 cm, previously 2.0 x 1.5 cm. 5. New small area of nodularity along the trachea favored to be adherent mucus, tracheal polyp is thought less likely. Attention on follow-up imaging. 6. Cholelithiasis. 7. Hepatic steatosis. 8. Bilateral low-density adrenal gland thickening likely adrenal adenomas. THIS IS AN ELECTRONICALLY VERIFIED FINAL REPORT 03/03/2025 11:50 AM - Electronically signed by Orville Townsend M.D. CH: Report ID: [id number] Reading Location: [place] [address] Procedure Note Orville Townsend Jr., MD - 03/03/2025 EXAM DESCRIPTION: CT CHEST WO CONTRAST REASON FOR STUDY: Non-small cell lung cancer (NSCLC), non-metastatic,assess treatment response 3 month lung cancer f/u. No complaints. TECHNIQUE: CT scan of the chest performed without intravenous contrastusing helical scanning technique. Reconstructed coronal and sagittal MPR images reviewed. All images stored on PACS. Automated exposure control was usedas a dose optimization technique for this examination. COMPARISON: 11/22/2024. FINDINGS: The sensitivity for detection of solid visceral lesions is diminished without the use of intravenous contrast. LUNGS: Small area of nodularity along the trachea is new from the prior study and may be a small area of adherent mucus, tracheal polyp is thought less likely. There is a moderately elevated right hemidiaphragm. Thereis prominent bibasilar atelectasis. In the right lower lobe there is a new nodular area of opacity curvilinear which is favored to be atelectasis slightly nodular measuring 2.2 x 2.1 cm (image 60). The previoussubpleural area of nodular opacity in the right lower lobe has resolved. Area ofopacity in the left upper lobe again slightly nodular 1.6 x 1.4 cm (image 52), previously 2.0 x 1.5 cm. PLEURA: No pleural effusion or pneumothorax. MEDIASTINUM/AMANDO: No mediastinal or hilar mass. HEART: Heart size is mildly enlarged. There is no pericardial effusion. There is calcification along the left lateral ventricular wall. CORONARY ARTERY CALCIFICATION: Coronary artery calcifications are seen. VASCULATURE: Thoracic aorta nonaneurysmal. Ascending thoracic aorta 3.7cm, descending thoracic aorta 2.9 cm. Main pulmonary artery 3.2 cm. AXILLA: No axillary lymphadenopathy. CHEST WALL: No chest wall mass or subcutaneous emphysema. HARDWARE/LINES/TUBES: None. UPPER ABDOMEN: In the included upper abdomen, mild hepatic steatosis. Extensive cholelithiasis, most gallstones are approximately 0.8 cm. Thereis bilateral low-density adrenal gland thickening normal right adrenal gland1.5 cm, left adrenal gland 1.7 cm. MUSCULOSKELETAL: Bone windows demonstrate no acute or aggressive osseous abnormality. Osseous bridging between the right first and second ribslikely related to old trauma. OTHER: No other significant abnormality. IMPRESSION: 1. Redemonstration of moderate elevation right hemidiaphragm withbibasilar atelectasis. 2. New nodular area of opacity in the right lower lobe 2.2 x 2.1 cmfavored to be atelectasis. Three-month follow-up chest CT recommended. 3. Resolution of the previous pleural base nodular area of opacity inthe right lower lobe. 4. Slight decrease in size of the left upper lobe opacity 1.6 x 1.4 cm, previously 2.0 x 1.5 cm. 5. New small area of nodularity along the trachea favored to be adherent mucus, tracheal polyp is thought less likely. Attention on follow-upimaging. 6. Cholelithiasis. 7. Hepatic steatosis. 8. Bilateral low-density adrenal gland thickening likely adrenaladenomas. THIS IS AN ELECTRONICALLY VERIFIED FINAL REPORT 03/03/2025 11:50 AM - Electronically signed by Orville Townsend M.D. CH: ANNE-MARIE Report ID: [id number] Reading Location: [id number] Kait SOLORZANO IMG CT PROCEDURES Final Res ult from Last 3 Months Insurance MEDICARE [facility] MEDICARE [facility] [place] [address] Care Teams Sheet Metal Production Worker Relationship Specialty Start Date End Date Tyrese Ruiz DO [address] [facility] [address] [place] [address] PCP - General Internal Medicine 10/19/24 Tulio Herman DO 3417 [facility] 200 [place] [address] Family Medicine 09/25/23 Nathanael Navarrete MD PhD 1418 [facility] MEDICAL ONCOLOGY, [facility] [address] [place] [address] Referring Physician Medical Oncology 09/26/23 Sourav Cade MD 1418 [facility] [address] [place], [place] [id number] Radiation Oncologist Radiation Oncology 10/29/23 Marko Humphrey DO [address] [facility] 162 [facility] 202 [place] [address] Central Service Supply Distributor Cardiology 11/03/23
--- OUTSIDE RECORDS SUMMARY | 2025-03-21 13:37 | XMS_ITS | Referral Summary ---
Author Organization [facility] [address] [place] [address] Care Team Providers Care Hand Shoes Sewer Name Role Phone Tulio Herman DO Unavailable Nathanael Navarrete MD PhD Unavailable [phone] Sourav Cade MD Unavailable [phone] Kam Marko Kena DO Unavailable [phone] Tyrese Ruiz DO Primary Care Provider [phone] Encounters Date Type Department Care Team Description 03/03/2025 Telephone [facility] Medical Office Building 2 Radiation Oncology [address] [place] [address] Kait Martel PA 02/21/2025 11:16 AM CDT - 02/21/2025 11:59 PM CDT Hospital Encounter [facility] Medical Office Building [address] [place] [address] Malignant neoplasm of upper lobe of left lung (HCC) Discharge Disposition: Discharge to home or self care 02/21/2025 11:30 AM CDT Office Visit [facility] Medical Office Building 2 Radiation Oncology [address] [place] [address] Kait Martel PA Malignant neoplasm of upper lobe of left lung (HCC) (Primary Dx); Personal history of radiation therapy 01/18/2025 8:45 AM CDT Office Visit [facility] Otolaryngology [address], [address] [place] [address] Eliecer Cade II, MD Nasal valve stenosis (Primary Dx); Nasal cavity mass; Hypertrophy of both inferior nasal turbinates 01/05/2025 Telephone [facility] Medical Office Building 2 Radiation Oncology [address] [place] [address] Era Carbajal 01/03/2025 Telephone [facility] Otolaryngology [address] [place] [phone] Alanis Schreiber Post-op Visit 12/31/2024 11:30 AM CDT Office Visit [facility] Otolaryngology [address] [place] [phone] Eliecer Cade II, MD Nasal valve stenosis (Primary Dx); Hypertrophy of both inferior nasal turbinates; Nasal cavity mass 12/30/2024 Telephone [facility] Otolaryngology [address] [place] [phone] Vashti Fabian LPN Pre-medication for procedure [...] tab to the procedure. 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 CH: ANNE-MARIE Report ID: [id number] Reading Location: [place] [address] Procedure Note Orville Townsend Jr., MD - [...] Orville Townsend M.D. CH: ANNE-MARIE Report ID: [id number] Reading Location: [place] [address] PROCEDURES Final Res ult from Last 3 Months Insurance MEDICARE [facility] Care Teams Hand Shoes Sewer Relationship Specialty Start Date End Date Tyrese Ruiz DO [address] [facility] [address] [place] [address] PCP - General Internal Medicine 10/19/24 Tulio Herman DO [facility]7 [facility] 2[facility] [address] [place] [address] Family Medicine 09/25/23 Nathanael Navarrete MD PhD [address] [place] [address] MEDICAL ONCOLOGY, [facility] 180 [place] [address] Referring Physician Medical Oncology 09/26/23 Sourav Cade MD [address] [place] [address] Radiation Oncologist Radiation Oncology 10/29/23 Marko Humphrey DO [address] [place] [address] Behavioral Services Tech Cardiology 11/03/23
--- NOTE | 2025-03-21 13:47 | ECHO_ITS ---
Patient Info Name: Jabari Moralez Age: 74 years : 1950 Gender: Male Ht: 74 in Wt: 235 lbs BSA: 2.38 m2 HR: 61 bpm BP: 122 / 73 mmHg Technical Quality: Good Exam Date: 03/21/2025 2:00 PM Patient Status: O Admit Date: 03/21/2025 Exam Type: CA echo doppler color flow Complete two-dimensional, color flow and Doppler transthoracic echocardiogram is performed. Profiler Hand: Elsie Edgar Attending Provider: Marko Humphrey DO Summary 1. Complete two-dimensional, color flow and Doppler transthoracic echocardiogram is performed. 2. Left ventricular chamber dimension is severely enlarged. 3. Basal to apical posterior wall is akinetic. 4. Left ventricular systolic function is severely globally reduced, estimated at 30-35. 5. The left ventricular diastolic function is grade I diastolic dysfunction. 6. E/e' 18 is elevated. 7. There is mild aortic valve sclerosis. 8. There is mild mitral valve regurgitation. 9. There is trace tricuspid valve regurgitation. 10. No pulmonary hypertension, estimated pulmonary arterial systolic pressure is 39 mmHg. Left Ventricle Basal to apical posterior wall is akinetic. Left ventricular chamber dimension is severely enlarged. Left ventricular systolic function is severely globally reduced, estimated at 30-35. The left ventricular diastolic function is grade I diastolic dysfunction. E/e' 18 is elevated. Global longitudinal strain is abnormal at -10.8%. Right Ventricle Right ventricular chamber dimension is normal. Right ventricular systolic function is normal. Left Atria Left atrial chamber dimension is moderately enlarged. Right Atria Right atrial chamber dimension is normal. Aortic Valve The aortic valve is trileaflet. There is mild aortic valve sclerosis. There is no aortic valve stenosis. There is no aortic valve regurgitation. Pulmonic Valve There is no pulmonic regurgitation. Mitral Valve There is no mitral valve stenosis. There is mild mitral valve regurgitation. Tricuspid Valve There is trace tricuspid valve regurgitation. No pulmonary hypertension, estimated pulmonary arterial systolic pressure is 39 mmHg. Pericardium/Pleural There is no pericardial effusion. Inferior Vena Cava Normal inferior vena cava with >50% collapse upon inspiration consistent with normal right atrial pressure, 5 mmHg. Aorta The aortic root size at the sinus of Valsalva is normal. Left Ventricular Outflow Tract Name Value Normal LVOT 2D LVOT Diameter 2.3 cm LVOT Doppler LVOT Peak Velocity 82 cm/s LVOT Peak Gradient 3 mmHg LVOT Mean Gradient 1 mmHg LVOT VTI 20 cm LVOT VTI/AV VTI Ratio 0.7 LVOT Stroke Volume 83 ml LVOT CO 5.0 l/min LVOT CI 2.1 l/min/m2 Pulmonic Valve Name Value Normal RVOT Doppler RVOT Peak Velocity 64 cm/s RVOT Peak Gradient 2 mmHg PV Doppler PV Peak Velocity 96 cm/s PV Peak Gradient 4 mmHg Mitral Valve Name Value Normal MV Diastolic Function MV E Peak Velocity 52 cm/s MV A Peak Velocity 117 cm/s MV E/A 0.4 MV Decel Time (PW) 174 ms Tricuspid Valve Name Value Normal TV Regurgitation Doppler TR Peak Velocity 290 cm/s TR Peak Gradient 34 mmHg Estimated PAP/RSVP RA Pressure 5 mmHg <=5 PA Systolic Pressure 39 mmHg <36 RV Systolic Pressure 39 mmHg <36 TV Annular TDI TV Lateral Bee s' Velocity 10.6 cm/s >=9.5 Aorta Name Value Normal Ascending Aorta Ao Root Diameter (MM) 4.1 cm Ao Root Diam Index (MM) 1.7 cm/m2 Aortic Valve Name Value Normal AV Doppler AV Peak Velocity 115 cm/s AV Peak Gradient 5 mmHg AV Mean Gradient 3 mmHg AV VTI 27 cm AV Area (Cont Eq VTI) 3.0 cm2 >=3.0 AV Area (Cont Eq Bruce) 3.0 cm2 AV DI (Bruce) 0.71 AV Regurgitation 2D LVOT Area 4.2 cm2 Ventricles Name Value Normal LV Dimensions 2D/MM IVS Diastolic Thickness (2D) 1.0 cm 0.6-1.0 LVID Diastole (2D) 7.2 cm 4.2-5.8 LVIW Diastolic Thickness (2D) 1.0 cm 0.6-1.0 LVID Systole (2D) 6.1 cm 2.5-4.0 LVOT Diameter 2.3 cm LV Mass (2D Cubed) 325.73 g 88.00-224.00 LV Mass Index (2D Cubed) 137 g/m2 49-115 Relative Wall Thickness (2D) 0.27 <=0.42 LV Fractional Shortening/Ejection Fraction 2D/MM LV Fractional Shortening (2D) 15 % 25-43 LV EF (2D Teichholz) 31 % LV Diastolic Volume (4C MOD) 157 ml LV EF (4C MOD) 34 % LV Diastolic Volume (2C MOD) 138 ml LV EF (2C MOD) 31 % LV Diastolic Volume (BP MOD) 146 ml 62-150 LV Diastolic Volume Index (BP MOD) 61 ml/m2 34-74 LV Systolic Volume (BP MOD) 99 ml 21-61 LV Systolic Volume Index (BP MOD) 42 ml/m2 11-31 LV EF (BP MOD) 32 % 52-72 LV Diastolic Length (4C) 8.9 cm LV Systolic Length (4C) 8.4 cm LV Stroke Volume (4C MOD) 53 ml Atria Name Value Normal LA Dimensions LA Dimension (MM) 3.9 cm 3.0-4.0 LA Volume (4C A-L) 50 ml LA Volume (BP A-L) 70 ml RA Dimensions RA Systolic [place] Length (4C) 5.1 cm 2.1-2.7 RA Area (4C) 15.0 cm2 <=18.0 EchoPAC Name Value Normal AutoEF LVCO_BiP_Q (Fcqq0YIG) 5.4 l/min LVEF_BiP_Q (Ebul7GWG) 37 % LVSV_BiP_Q (Zowk2YDM) 94 ml LVVED_BiP_Q (Zbps6BTL) 252 ml LVVES_BiP_Q (Fddy8WWP) 158 ml HR_4Ch_Q (Etog5BAX) 56 bpm LVCO_4Ch_Q (Hwfg4IXD) 5.0 l/min LVEF_4Ch_Q (Ziog1ZMX) 41 % LVLd_4Ch_Q (Pczt0APH) 9.8 cm LVLs_4Ch_Q (Ilac5QFJ) 8.7 cm LVSV_4Ch_Q (Qdrb3YZS) 89 ml LVVED_4Ch_Q (Oqvn0NEF) 219 ml LVVES_4Ch_Q (Ecyq1KWY) 130 ml HR_2Ch_Q (Iiuq1PQA) 60 bpm LVCO_2Ch_Q (Qplr3MGP) 5.7 l/min LVEF_2Ch_Q (Plnh8CPQ) 33 % LVLd_2Ch_Q (Ibun5JOJ) 10.1 cm LVLs_2Ch_Q (Trmm6VZQ) 8.8 cm LVSV_2Ch_Q (Nvbh4LJF) 95 ml LVVED_2Ch_Q (Ctgi0UOO) 285 ml LVVES_2Ch_Q (Zfnf4FLU) 191 ml CABRERA LV Apical Anterior Longitudinal Strain (CABRERA) -17.1 % LV Apical Anteroseptal Longitudinal Strain (CABRERA) -14.3 % LV Apical Inferior Longitudinal Strain (CABRERA) -19.8 % LV Apical Lateral Longitudinal Strain (CABRERA) -10.4 % LV Apical Posterior Longitudinal Strain (CABRERA) 5.0 % LV Apical Septal Longitudinal Strain (CABRERA) -24.9 % AV Closure (CABRERA) 473 ms LV Basal Anterior Longitudinal Strain (CABRERA) -10.8 % LV Basal Anteroseptal Longitudinal Strain (CABRERA) -16.0 % LV Basal Inferior Longitudinal Strain (CABRERA) -5.1 % LV Basal Anterolateral Longitudinal Strain (CABRERA) -13.4 % LV Basal Inferolateral Longitudinal Strain (CABRERA) 4.8 % LV Basal Inferoseptal Longitudinal Strain (CABRERA) -11.1 % LV Global Longitudinal Strain (2C CABRERA) -9.9 % LV Global Longitudinal Strain (4C CABRERA) -12.9 % LV Global Longitudinal Strain (APLAX CABRERA) -9.6 % LV Global Longitudinal Strain (CABRERA) -10.8 % LV Mid Anterior Longitudinal Strain (CABRERA) -6.3 % LV Mid Anteroseptal Longitudinal Strain (CABRERA) -22.4 % LV Mid Inferior Longitudinal Strain (CABRERA) -5.1 % LV Mid Anterolateral Longitudinal Strain (CABRERA) -6.2 % LV Mid Inferolateral Longitudinal Strain (CABRERA) 3.8 % LV Mid Inferoseptal Longitudinal Strain (CABRERA) -19.6 % Report Signatures
== END 2025-03-21 13:35 | disposition home or self-care (01) ==
LOC: ANHCARD 13:35
PROVIDERS: PCP Internal Medicine; Visit Provider Internal Medicine Cardiovascular Disease
DX: I42.0 Dilated cardiomyopathy (principal); I34.0 Nonrheumatic mitral (valve) insufficiency
CPT/HCPCS: 93306

== ENCOUNTER 2025-05-30 11:42 | Outpatient (CLI) | payer MEDICARE, OTHER, SELFPAY ==
--- NOTE | ~2025-05-30 | US_ITS ---
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 Comparison: None Technique: Lott-scale and color Doppler images were attempted of the lower saphenofemoral junction, common femoral vein,superficial femoral vein, proximal deep femoral vein, proximal deep femoral vein, popliteal vein and posterior tibial veins. Findings: Deep Venous System:Within the left popliteal vein, There is diminished flow compression, the remaining visualized deep venous system is unremarkable. Superficial Venous SystemNo superficial thrombophlebitis. Soft tissues: Soft tissues are unremarkable. Impression: Left-sided DVT. Comparison to the previous exam of the of benefit to assess for change Reviewed, dictated and finalized at location A. Impression: Left-sided DVT. Comparison to the previous exam of the of benefit to assess for change
--- OUTSIDE RECORDS SUMMARY | 2025-05-30 13:57 | XMS_ITS ---
Author Organization [facility] [address] Address [address] [place] [address] Care Team Providers Care Core Sucker Name Role Phone SantosTulio riddle Unavailable Nathanael Navarrete MD PhD Unavailable [phone] Sourav Cade MD Unavailable [phone] Marko Humphrey DO Unavailable [phone] Tyrese Ruiz DO Primary Care Provider [phone] Active Problems Patient Care Coordination No te [...]
--- OUTSIDE RECORDS SUMMARY | 2025-05-30 13:57 | XMS_ITS | Clinical Summary ---
Author Organization [facility] [address] [place] Address [address] [facility] [place] [address] Care Team Providers Care Energy Director Name Role Phone Tulio Herman Unavailable Nathanael Navarrete MD PhD Unavailable [phone] Sourav Cade MD Unavailable [phone] Kam Marko Kena DO Unavailable [phone] Tyrese Ruiz DO Primary Care Provider [phone] Allergies No known active allergies Medications Eliquis [...] tab to the procedure. 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 Gender Identity Not on file Sexual Orientation [...] AA) Screen 2014 Well Visit 65+ 2014 Fall Risk Assessment 11/11/2024 11/11/2023 Covid-19 Vaccine (5 - 2024-2 6 season) 2025 08/27/2021, 12/15/2020, 12/12/2020, Additional history exists Influenza Vaccine (#1) 2025 , 08/29/2023, 07/08/2022, Additional history exists Pneumococcal vaccine 65+ Completed 05/31/2020, 05/16 Insurance MEDICARE [facility] MEDICARE [facility] Care Teams Energy Director Relationship Specialty Start Date End Date Tyrese Ruiz DO [address] [facility] [address] [place], [place] [id number] PCP - General Internal Medicine 10/19/24 Tulio Herman DO 3417 [facility] 200 [place] [address] Family Medicine 09/25/23 Nathanael Navarrete MD PhD [address] [place] [address] MEDICAL ONCOLOGY, [facility] 180 [place], [place] [id number] Referring Physician Medical Oncology 09/26/23 Sourav Cade MD 1418 [facility] 160 [place], [place] [id number] Radiation Oncologist Radiation Oncology 10/29/23 Marko Humphrey DO 6812 [facility] 162 [facility] 202 [place] [address] Processing Associate Cardiology 11/03/23
--- OUTSIDE RECORDS SUMMARY | 2025-05-30 13:57 | XMS_ITS | Clinical Summary ---
Author Organization [facility] Address [address] [place] [address] Care Team Providers Care Germination Testing Manager Name Role Phone Unavailable Primary Care Provider Unavailabl e Social History Tobacco Use Types Packs/Day Years Used Date Smoking Tobacco: Never Assessed Sex and Gender Information Value Date Recorded Sex Assigned at Not on file Legal Sex Male 9:07 AM CDT Gender Identity Not on file Sexual Orientation Not on file Plan of Treatment Upcoming Encounters Date Type Department Care Team (Late st Contact Info) Description 06/23/2025 11:00 AM CDT Appointment [facility] [address] [facility] [place] [address] [address] Marko Humphrey, DO [address] [place], [place] [id number] Health Maintenance Due Date Last Done Comments ASCVD LDL 1950 ASCVD Statin 1950 Colorectal Cancer Screening Colonoscopy (10 Years) 1950 Hepatitis C 12/20/1967 DTaP, Tdap and Td Vaccines ( 1 - Tdap) 1968 Pneumococcal Vaccine: 50+ Ye ars (1 of 2 - PCV) 1968 Zoster Vaccines (1 of 2) 12/20/1999 RSV Immunization or 60+ Years (1 - 1-dose 75+ series) 2024 COVID-19 Vaccine (1 - 2023-2 5 season) 2025 Meningococcal B Vaccine Aged Out No l onger eligible based on patient's age to complete this topic Meningococcal Vaccine Aged Out No louise aaliyah eligible based on patient's age to complete this topic RSV Immunizations Under 20 Months Aged Out No longer eligible based on patient's age to complete this topic
== END 2025-05-30 11:43 | disposition home or self-care (01) ==
PROVIDERS: PCP Internal Medicine; Visit Provider Internal Medicine Cardiovascular Disease
DX: I82.5Z2 Chronic embolism and thrombosis of unspecified deep veins of left distal lower extremity (principal)
CPT/HCPCS: 93971

== ENCOUNTER 2025-07-01 09:23 | Outpatient (CLI) | payer MEDICARE, OTHER, SELFPAY ==
--- OUTSIDE RECORDS SUMMARY | 2025-07-01 09:50 | XMS_ITS | Clinical Summary ---
Author Organization [facility] [address] Address [address] [place] [address] Care Team Providers Care Claims Specialist Name Role Phone Tulio Herman Unavailable Nathanael Navarrete MD PhD Unavailable [phone] Sourav Cade MD Unavailable [phone] Marko Humphrey DO Unavailable [phone] Tyrese Ruiz DO Primary Care Provider Allergies No known active allergies Medications Eliquis [...] tab to the procedure. 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 Gender Identity Not on file Sexual Orientation [...] vaccine 65+ Completed 05/31/2020, 05/16 Insurance MEDICARE [facility] [place] MEDICARE [facility] [place] Care Teams Claims Specialist Relationship Specialty Start Date End Date Tyrese Ruiz DO [address] [address] PCP - General Internal Medicine 10/19/24 Tulio Herman DO [facility] [address] [place], [place] [id number] Family Medicine 09/25/23 Nathanael Navarrete MD PhD [address] [place] [address] MEDICAL ONCOLOGY, [facility] [address] [place] [address] Referring Physician Medical Oncology 09/26/23 Sourav Cade MD [address] [place] [address] [address] [place] [address] Radiation Oncologist Radiation Oncology 10/29/23 Marko Humphrey DO [address] [facility] [address] [place] [address] Video Camera Operator Cardiology 11/03/23
--- OUTSIDE RECORDS SUMMARY | 2025-07-01 09:50 | XMS_ITS | Clinical Summary ---
Author Organization [facility] Address [facility] [place] [address] Care Team Providers Care Bow Rehairer Name Role Phone Tyrese Ruiz DO Primary Care Provider [phone] Encounters Date Type Department Care Team Description 06/27/2025 Telephone [facility], [address] [address] Carloz Watson MD Record Request 06/27/2025 Orders Only [facility] [place] [address] Marko Walker DO 06/23/2025 10:38 AM CDT - 06/23/2025 11:59 PM CDT Hospital Encounter [facility] [place] [address] Marko Walker DO Discharge Disposition: Home or Self Care (Routine Discharge) 06/23/2025 Travel from Last 3 Months Social History Tobacco Use Types Packs/Day Years Used Date Smoking Tobacco: Never Assessed Sex and Gender Information Value Date Recorded Sex Assigned at Male 06/23/2025 10:32 AM CDT Legal Sex Male 9:07 AM CDT Gender Identity Not on file Sexual Orientation Not on file Plan of Treatment Upcoming Encounters Date Type Department Care Team (Late st Contact Info) Description 07/04/[address] [facility] [place] [address] Marko Walker DO [address] [facility] [address] [place] [address] Health Maintenance Due Date Last Done Comments ASCVD LDL 1950 ASCVD Statin 1950 Colorectal Cancer Screening Colonoscopy (10 Years) 1950 Hepatitis C 12/20/1967 DTaP, Tdap and Td Vaccines (1 - Tdap) 1968 Zoster Vaccines (1 of 2) 12/20/1999 Annual Medicare Wellness Visit 2014 RSV Immunization or 60+ Years (1 - 1-dose 75+ series) 2024 COVID-19 Vaccine ( - season) 2025 08/27/2021, 12/15/2020, 12/12/2020, Additional history exists Influenza Adult (#1) 2025 09/02/2024, 08/29/2023, 07/08/2022, Additional history exists Pneumococcal Vaccine: 50+ Years Completed 05/31/2020, 06/02/2019 Hepatitis A Vaccines Aged Out No long er eligible based on patient's age to complete this topic Meningococcal B Vaccine Aged Out No l onger eligible based on patient's age to complete this topic Meningococcal Vaccine Aged Out No louise aaliyah eligible based on patient's age to complete this topic RSV Immunizations Under 20 Months Aged Out No longer eligible based on patient's age to complete this topic Procedures Procedure Name Priority Date/Time Associated Diagnosis Comments CTA CORONARY INCIDENTAL FINDINGS Routine 06/23/2025 11:13 AM CDT Atherosclerotic heart disease of [place] coronary artery without angina pectoris CTA CORONARY W SCORING Routine 06/23/2025 11:13 AM CDT Atherosclerotic heart disease of [place] coronary artery without angina pectoris from Last 3 Months Results * CTA CORONARY INCIDENTAL FINDINGS (06/23/2025 11:13 AM CDT) Anatomical Region Laterality Modality Chest Computed Tomogra phy, Radiographic Imaging 06/27/2025 9:28 AM CDT Impressions 06/27/2025 9:35 AM CDT IMPRESSION: 1. Cardiac findings interpreted by law clerk. 2. Irregular 2.4 x 1.3 x 1.1 cm nodule, left upper lobe/lingula. Associated linear opacities and tree-in-bud opacities. Indeterminate etiology. Possibly infectious/inflammatory. However, cannot exclude neoplasm. RECOMMENDATION: Follow-up CT chest in 4-6 weeks. Ordered By: MARKO WALKER Interpreted By: Elliott Sanchez MD, 06/27/2025 9:28 AM Narrative 06/27/2025 9:35 AM CDT [place] [id number] EXAMINATION: CARDIAC COMPUTED TOMOGRAPHY ANGIOGRAM, ROUTINE CORONARY CTA. LUNG OVER READ. DATE: 06/23/2025 HISTORY: 74-year old male Atherosclerotic heart disease of [place] coronary artery without angina pectoris. COMPARISON: None. TECHNIQUE: Multidetector computerized tomography coronary angiogram was obtained using retrospective ECG gating after the administration of 80 mL of Isovue-370 intravenous contrast at 5 mL/sec with 50 mL saline push according to coronary CTA protocol. ECG tube modulation was used to reduce the radiation exposure. A dose lowering technique was used for this procedure, which may include, but is not limited to, dose reduction technique, automated exposure control, the use of iterative reconstruction, and ALARA (As Low As Reasonably Achievable) / Image Gently techniques. Medications: Administered by cardiology service. Vital signs: Recorded by cardiology service. Procedure Complications/Allergic reactions: None. Coronary CT angiogram quality: Determined by cardiology service. FINDINGS: CORONARY ARTERY ANGIOGRAM AND OTHER CARDIAC FINDINGS: Interpreted by law clerk. EXTRACARDIAC FINDINGS: Irregular 2.4 x 1.3 x 1.1 cm nodule in the left upper lobe/lingula on image 115, series 9, with adjacent linear opacities and possible tree-in-bud opacities. Linear nodular scarring, incompletely imaged, right middle lobe. Sub-6 mm lung nodule in the left upper lobe on image 16. Sinus of Valsalva, 4.2 cm. Atherosclerotic thoracic aorta. Visualized pulmonary artery appears normal. Calcific mediastinal and hilar lymph nodes. Accessory/replaced left hepatic artery. Elevation of right hemidiaphragm with concomitant atelectasis. Spondylosis. Procedure Note Elliott Sanchez MD - 06/27/2025 [facility] [address] [place], [place] [address] EXAMINATION: CARDIAC COMPUTED TOMOGRAPHY ANGIOGRAM, ROUTINE CORONARY CTA.LUNG OVER READ. DATE: 06/23/2025 HISTORY: 74-year old male Atherosclerotic heart disease of nativecoronary artery without angina pectoris. COMPARISON: None. TECHNIQUE: Multidetector computerized tomography coronary angiogram wasobtained using retrospective ECG gating after the administration of 80 mLof Isovue-370 intravenous contrast at 5 mL/sec with 50 mL saline pushaccording to coronary CTA protocol. ECG tube modulation was used to reducethe radiation exposure. A dose lowering technique was used for thisprocedure, which may include, but is not limited to, dose reductiontechnique, automated exposure control, the use of iterativereconstruction, and ALARA (As Low As Reasonably Achievable) / Image Gentlytechniques. Medications: Administered by cardiology service. Vital signs: Recorded by cardiology service. Procedure Complications/Allergic reactions: None. Coronary CT angiogram quality: Determined by cardiology service. FINDINGS: CORONARY ARTERY ANGIOGRAM AND OTHER CARDIAC FINDINGS: Interpreted bycardiologist. EXTRACARDIAC FINDINGS: Irregular 2.4 x 1.3 x 1.1 cm nodule in the left upper lobe/lingula onimage 115, series 9, with adjacent linear opacities and sknrpgdlopoy-in-tub opacities. Linear nodular scarring, incompletely imaged, rightmiddle lobe. Sub-6 mm lung nodule in the left upper lobe on image 16.Sinus of Valsalva, 4.2 cm. Atherosclerotic thoracic aorta. Visualizedpulmonary artery appears normal. Calcific mediastinal and hilar lymphnodes. Accessory/replaced left hepatic artery. Elevation of righthemidiaphragm with concomitant atelectasis. Spondylosis. IMPRESSION: 1. Cardiac findings interpreted by law clerk. 2. Irregular 2.4 x 1.3 x 1.1 cm nodule, left upper lobe/lingula.Associated linear opacities and tree-in-bud opacities. Indeterminateetiology. Possibly infectious/inflammatory. However, cannot excludeneoplasm. RECOMMENDATION: Follow-up CT chest in 4-6 weeks. Ordered By: MARKO M AARON Interpreted By: Elliott Sanchez MD, 06/27/2025 9:28 AM Marko Walker DO CT Final Result * CTA CORONARY W SCORING (06/23/2025 11:13 AM CDT) Anatomical Region Laterality Modality Chest Computed Tomogra phy, Radiographic Imaging Narrative 06/27/2025 12:[address] ANGIOGRAM (Cardiology Portion) Patient Name: Jabari Moralez : 1950 Date of Study: 06-23-2025 Interpreting Drum Cleaner: CARLOZ WATSON M.D. Indication: Evaluate coronaries History: 74-year-old male with hypertension, cardiomyopathy, coronary artery disease, DVT, lung cancer PRE PROCEDURE DATA: Baseline heart rate is 46 beats per minute. Blood pressure is 122/71 mmHg. A 20 gauge Heplock was inserted in the right antecubital vein and flushed with a 0.9 NACL. PROCEDURE DATA: Baseline heart rate is 52 beats per minute. Medication totals: Metoprolol 0 mg IVP Nitroglycerin sublingual tab times 2 Isovue contrast total is 80 ml followed by a flush of 0.9 normal saline 50 ml POST PROCEDURE DATA: Post procedure heart rate is 54 beats per minute. Blood pressure is 107/59 mmHg. Patient tolerated procedure well. IV access discontinued and band aide dressing applied to site. TECHNIQUE: Computed tomography was performed along the axial plane with 0.75 mm slice thickness utilizing IV administration of Isovue 370. FINDINGS: The coronary calcium score is 258. The aortic valve calcium score is 8.7. The quality of the study is good. CARDIAC STRUCTURES: Left Atrium: Normal in size. Left Atrial Appendage: Cauliflower morphology. There is no apparent left atrial appendage filling defect. Intra-atrial Septum: Normal. Interatrial septal lipomatous hypertrophy. Left Ventricle: Cavity is Severely enlarged. Concentric left ventricular hypertrophy: Mild. Inferior infarct wall thinning. Calcification of inferolateral wall. Left ventricular ejection fraction: 30%. Wall motion: Abnormal. Hypokinesis: Severe. of the inferior and inferolateral wall. Calcification of inferolateral wall. No stigmata of prior infarction. No abnormal filling defect. Aorta: Aortic root measures 40.5mm. Calcified plaque descending aorta. Ascending aorta measures 33.3mm. Pulmonary Arteries: Normal in size. There is no proximal filling defect. Pulmonary Vein: Four noted pulmonary veins. Two on the right and two on the left. Pericardium: Abnormal thickness with significant calcium present. Calcified pericardium inferolateral. CORONARY ANATOMY: Left Main: Dense calcified plaque mid/distal left main extending into ostial LAD, proximal circumflex. Large caliber vessel with a normal take off from the left coronary cusp that trifurcates into a left anterior descending and a left circumflex and ramus intermedius. 60% stenosis at the distal vessel. Left Anterior Descending Artery: 30% stenosis at the mid vessel. It gives off 1 diagonal branch. LAD wraps around apex. First diagonal: Large caliber vessel. 30% stenosis at the proximal vessel. Ramus Intermedius: Patent with no evidence of plaque. Large caliber vessel. Circumflex Artery: Non-dominant. 100% stenosis at the mid vessel. It gives off 2 obtuse marginal branches. Mid circumflex- suspect chronic total occlusion 18mm in length. First obtuse marginal: Large caliber vessel. Second obtuse marginal: Large caliber vessel. Right Coronary Artery: Dominant. Susprct Long chronic total occlusion vs. Severe stenosis of mid-distal RCA 48mm in length. Posterior descending artery: Large caliber vessel. Patent with no evidence of plaque. Right posterolateral branch: Large caliber vessel. Patent with no evidence of plaque. AORTIC VALVE: Morphology: Trileaflet ADDITIONAL NON-CARDIAC STRUCTURES AND LUNGS READ BY RADIOLOGY COLLEAGUES. 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 Plaque (Calcium Score): Overall, there is a moderate amount of coronary plaque. Aortic Valve Calcium Score: 8.7. Ejection Fraction: 30%. Modifiers: None. Calcification of LV inferolateral wall and pericardium. LV enlargement with low EF, 30%. Hypokinesis of interior, inferolateral higgins. Cath catheterization is recommened. Coronary Fractional Flow Whigham is recommended. Electronically signed by CARLOZ WATSON M.D. 06/27/2025 9:25 AM Marko Walker DO CT Final Result from Last 3 Months Insurance MEDICARE [facility] Care Teams Bow Rehairer Relationship Specialty Start Date End Date Tyrese Ruiz DO [address] [facility] [address] [place] [address] PCP - General INTERNAL MEDICINE 06/17/25
--- OUTSIDE RECORDS SUMMARY | 2025-07-01 09:50 | XMS_ITS ---
Author Organization [facility] [address] [place] Address [address] [place] [address] Care Team Providers Care Cut Out Press Operator Name Role Phone Santosvenkatesh Tulio WARREN Unavailable Nathanael Navarrete MD PhD Unavailable [phone] Sourav Cade MD Unavailable [phone] Marko Humphrey DO Unavailable [phone] Tyrese Ruiz DO Primary Care Provider Active Problems Patient Care Coordination No te [...]
[2025-07-01 10:12] LABS: Hematocrit 52.6 % (42.0-52.0); Hemoglobin 17.5 g/dL (14.0-18.0); Immature Granulocyte Percent A 0.2 % (0-0.5); Lymphocytes Absolute Auto 1.56 K/mm3 (0.9-3.2); Mean Corpuscular HGB Conc 33.3 g/dl (32-36); Mean Corpuscular Hemoglobin 34.5 pg (26-34); Mean Corpuscular Volume 103.7 fl (80-100); Nucleated Red Blood Cells Absolute Auto 0.000 K/mm3 (0.0-0.012); Nucleated Red Blood Cells Perc 0.0 % (0.0-0.2); Platelet Count Result 201 k/mm3 (150-375); Red Blood Count 5.07 M/mm3 (4.6-6.20); White Blood Count 5.2 K/mm3 (4.5-10.0)
[2025-07-01 11:09] LABS: Thyroid Stimulating Hormone 5.850 uIU/mL (0.465-4.680)
== END 2025-07-01 09:24 | disposition home or self-care (01) ==
LOC: ANHLAB 09:25
PROVIDERS: PCP Internal Medicine; Visit Provider Internal Medicine
DX: I50.20 Unspecified systolic (congestive) heart failure (principal); D75.1 Secondary polycythemia; Z79.01 Long term (current) use of anticoagulants; Z79.899 Other long term (current) drug therapy
CPT/HCPCS: 36415; 84443; 85025

== ENCOUNTER 2025-07-08 07:42 | Outpatient (CLI) | payer MEDICARE, OTHER, SELFPAY ==
--- NOTE | 2025-07-08 | CONSULT_PTH ---
PATIENT: Jabari oMralez LOC: ANHLAB #:[id number] AGE/SX: 74/M ROOM: RE07/08/[address]: Tyrese Ruiz DO : 1950 BED: DIS: 07/08/2025 SPEC #: [id number] RECD: 07/08/25 08:37 STATUS: COSME REQ #: [id number] SILVIO: 07/08/25 00:[address]: Tyrese Ruiz DEPT: [facility] Consult RECD BY: Desi Antunez MLT, ([facility]) Tissues: A - Peripheral Smear Procedures: Hematology Consult
[2025-07-08 08:11] LABS: Hematocrit 55.0 % (42.0-52.0); Hemoglobin 18.1 g/dL (14.0-18.0); Immature Granulocyte Percent A 0.3 % (0-0.5); Lymphocytes Absolute Auto 1.66 K/mm3 (0.9-3.2); Mean Corpuscular HGB Conc 32.9 g/dl (32-36); Mean Corpuscular Hemoglobin 34.5 pg (26-34); Mean Corpuscular Volume 105.0 fl (80-100); Nucleated Red Blood Cells Absolute Auto 0.000 K/mm3 (0.0-0.012); Nucleated Red Blood Cells Perc 0.0 % (0.0-0.2); Platelet Count Result 206 k/mm3 (150-375); Red Blood Count 5.24 M/mm3 (4.6-6.20); White Blood Count 6.2 K/mm3 (4.5-10.0)
[2025-07-08 09:16] LABS: Free T4 Free Thyroxine 1.32 ng/dL (0.78-2.19)
[2025-07-08 10:32] LABS: Vitamin B12 251.0 pg/mL (239-931)
[2025-07-09 07:09] LABS: Triiodothyronine (T3), Free 3.1 pg/mL (2.0-4.4)
== END 2025-07-08 07:43 | disposition home or self-care (01) ==
LOC: ANHLAB 07:44
PROVIDERS: PCP Internal Medicine; Visit Provider Internal Medicine
DX: E03.9 Hypothyroidism, unspecified (principal); D75.89 Other specified diseases of blood and blood-forming organs; D75.1 Secondary polycythemia
CPT/HCPCS: 36415; 82607; 82746; 84439; 84481; 85025

== ENCOUNTER 2025-08-08 09:34 | Outpatient (CLI) | payer MEDICARE, OTHER, SELFPAY ==
[2025-08-08 10:45] LABS: Free T3 3.07 pg/mL (2.45-5.93)
--- OUTSIDE RECORDS SUMMARY | 2025-08-08 10:48 | XMS_ITS | Clinical Summary ---
Author Organization [facility] [address] Address [address] [place] [address] Care Team Providers Care Cigarette Filter Inspector Name Role Phone Tulio Herman Unavailable Nathanael Navarrete MD PhD Unavailable [phone] Sourav Cade MD Unavailable [phone] Kam Marko Kena DO Unavailable [phone] Tyrese Ruiz DO Primary Care Provider [phone] Allergies No known active allergies Medications Eliquis [...] tab to the procedure. PATIENT MUST HAVE TELEPHONER 3 tablet 5 Active HYDROcodone-jose taminophen (NORCO) [...] Encounters Date Type Department Care Team Description 07/12/2025 8:45 AM CDT Office Visit 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 Gender Identity Not on file Sexual Orientation [...] - - Weight 104.3 kg (230 lb) 07/12/2025 11:13 AM CDT Height 188 cm (6' 2) 07/12/2025 11:13 AM CDT Body Mass Index 29.53 07/12/2025 11:13 AM CDT Plan of Treatment Health Maintenance [...] vaccine 65+ Completed 05/31/2020, 05/16 Insurance MEDICARE [facility] MEDICARE [facility] [place] [address] Care Teams Cigarette Filter Inspector Relationship Specialty Start Date End Date Tyrese Ruiz DO [address] [facility] [address] [place], [place] [id number] PCP - General Internal Medicine 10/19/24 Tulio Herman DO [facility] [address] [place], [place] [address] Family Medicine 09/25/23 Nathanael Navarrete MD PhD [address] [facility] MEDICAL ONCOLOGY, [facility] [address] [place] [address] Referring Physician Medical Oncology 09/26/23 Sourav Cade MD [address] [facility] [address] [place] [address] Radiation Oncologist Radiation Oncology 10/29/23 Marko Humphrey DO [address] [facility] [address] [place] [address] Employee Benefits Specialist Cardiology 11/03/23
--- OUTSIDE RECORDS SUMMARY | 2025-08-08 10:48 | XMS_ITS ---
Author Organization [facility] [address] [place] Address [address] [address] Care Team Providers Care Inspector Crystal Name Role Phone Santosvenkatesh Tulio WARREN Unavailable Nathanael Navarrete MD PhD Unavailable [phone] Sourav Cade MD Unavailable [phone] Marko Humphrey DO Unavailable [phone] Tyrese Ruiz DO Primary Care Provider [phone] Active Problems Patient Care Coordination No te [...]
[2025-08-08 10:57] LABS: Thyroid Stimulating Hormone 6.400 uIU/mL (0.465-4.680)
== END 2025-08-08 09:35 | disposition home or self-care (01) ==
PROVIDERS: PCP Internal Medicine; Referring Provider Internal Medicine Cardiovascular Disease; Visit Provider Internal Medicine
DX: D75.1 Secondary polycythemia (principal); I50.20 Unspecified systolic (congestive) heart failure; Z79.01 Long term (current) use of anticoagulants; Z79.899 Other long term (current) drug therapy; I73.9 Peripheral vascular disease, unspecified; I11.0 Hypertensive heart disease with heart failure
CPT/HCPCS: 36415; 84443; 84481